=== PATIENT | male | born 1980 | race Two or more races ===

== ENCOUNTER 2020-03-19 08:17 | Outpatient (REF) | payer OTHER, SELFPAY ==
[2020-03-19 09:03] LABS: MANUAL DIFF FLAG NO
[2020-03-19 09:08] LABS: Basophils Absolute Auto 0.1 X10*3/uL (0.0-0.2); Basophils Percent Auto 1.1 % (0-2); Eosinophils Absolute Auto 0.4 X10*3/uL (0.0-0.4); Eosinophils Percent Auto 4.5 % (0-4); Hematocrit 41.6 % (42-52); Imm Gran Abs Auto 0.03 X10*3/uL (0.00-0.03); Imm Gran Pct Auto 0.3 % (0.0-0.4); Lymphocytes Percent Auto 31.6 % (20-40); Mean Corpuscular HGB Conc 33.7 g/dl (31.0-36.0); Mean Corpuscular Hemoglobin 28.2 pg (27.0-33.0); Mean Corpuscular Volume 83.7 fL (80-98); Mean Platelet Volume 9.6 fL (9.4-12.4); Monocytes Absolute Auto 0.7 X10*3/uL (0.1-1.2); Monocytes Percent Auto 7.7 % (2-11); Neutrophils Absolute Auto 5.1 X10*3/uL (2.0-8.3); Neutrophils Percent Auto 54.8 % (45-73); Platelet Count 407 X10*3/uL (160-400); Red Blood Count 4.97 X10*6/uL (4.60-5.80); Red Cell Distribution Width 13.3 % (11.0-16.0); White Blood Count 9.4 X10*3/uL (4.8-10.8)
[2020-03-19 09:40] LABS: Anion Gap 14 (12-20); Blood Urea Nitrogen 12 mg/dL (9-16); Calcium 9.4 mg/dL (8.4-10.2); Carbon Dioxide 27 mmol/L (22-29); Chloride 102 mmol/L (96-108); Cholesterol 201 mg/dL; Estimated Glomerular Filt Rate > 60; Glucose Fasting 93 mg/dL (60-99); HDL Cholesterol 33 mg/dL; LDL Cholesterol Calculated 111 mg/dl; Potassium 4.5 mmol/l (3.3-5.1); Sodium 138 mmol/L (135-145); Triglycerides 288 mg/dL
[2020-03-19 10:02] LABS: TSH reflex Free T4 1.75 mIU/mL (0.32-4.0)
[2020-03-19 11:18] LABS: SARS COV2 IgG Negative (Negative)
== END 2020-03-19 08:18 | disposition home or self-care (01) ==
LOC: HO.LAB 08:17
PROVIDERS: PCP Internal Medicine; Visit Provider Internal Medicine
DX: J45.20 Mild intermittent asthma, uncomplicated (principal); E66.01 Morbid (severe) obesity due to excess calories; Z68.37 Body mass index [BMI] 37.0-37.9, adult; I10 Essential (primary) hypertension; Z76.89 Persons encountering health services in other specified circumstances
CPT/HCPCS: 36415; 80048; 80061; 84443; 85025; 86769

== ENCOUNTER 2020-06-30 15:31 | Outpatient (REF) | payer SELFPAY ==
--- NOTE | ~2020-06-30 | XR_ITS ---
EXAMINATION: XR CHEST CLINICAL INFORMATION: R06.02 - Shortness of breath COMPARISON: Chest radiographs 06/02/2019 TECHNIQUE: 2 views of the chest were obtained. FINDINGS: The lungs are clear. The vascularity is normal. There is no airspace consolidation or effusion. The heart is normal in size. The hilar and mediastinal contours are normal. The bony structures show mild degenerative changes mid thoracic spine. XR/XR chest 2V IMPRESSION: Unremarkable examination.
[2020-06-30 16:34] LABS: Basophils Absolute Auto 0.1 X10*3/uL (0.0-0.2); Eosinophils Absolute Auto 0.3 X10*3/uL (0.0-0.4); Eosinophils Percent Auto 3.2 % (0-4); Hematocrit 39.3 % (42-52); Hemoglobin 13.3 g/dl (14.0-18.0); Imm Gran Abs Auto 0.04 X10*3/uL (0.00-0.03); Imm Gran Pct Auto 0.5 % (0.0-0.4); Lymphocytes Absolute Auto 3.2 X10*3/uL (1.2-4.9); Lymphocytes Percent Auto 37.7 % (20-40); MANUAL DIFF FLAG NO; Mean Corpuscular HGB Conc 33.8 g/dl (31.0-36.0); Mean Corpuscular Hemoglobin 28.2 pg (27.0-33.0); Mean Corpuscular Volume 83.4 fL (80-98); Mean Platelet Volume 9.6 fL (9.4-12.4); Monocytes Absolute Auto 0.6 X10*3/uL (0.1-1.2); Monocytes Percent Auto 7.3 % (2-11); Neutrophils Absolute Auto 4.2 X10*3/uL (2.0-8.3); Neutrophils Percent Auto 50.3 % (45-73); Platelet Count 414 X10*3/uL (160-400); Red Blood Count 4.71 X10*6/uL (4.60-5.80); Red Cell Distribution Width 13.3 % (11.0-16.0); White Blood Count 8.4 X10*3/uL (4.8-10.8)
[2020-06-30 16:57] LABS: Alanine Aminotransferase 36 U/L (0-40); Albumin Level 4.7 g/dL (3.5-5.0); Alkaline Phosphatase 76 U/L (39-117); Anion Gap 14 (12-20); Aspartate Amino Transferase 31 U/L (5-37); Bilirubin Direct 0.2 mg/dL (0.0-0.5); Bilirubin Total 0.7 mg/dL (0.0-1.0); Blood Urea Nitrogen 11 mg/dL (9-16); Calcium 9.6 mg/dL (8.4-10.2); Carbon Dioxide 27 mmol/L (22-29); Chloride 103 mmol/L (96-108); Estimated Glomerular Filt Rate > 60; Glucose Random 88 mg/dL (60-115); Sodium 140 mmol/L (135-145); Total Protein 7.9 g/dL (6.5-8.0)
[2020-06-30 17:23] LABS: Erythrocyte Sedimentation Rate 13 MM/HR (0-15)
[2020-06-30 17:51] LABS: B Type Natriuretic Peptide 10 pg/mL (<100)
== END 2020-06-30 15:32 | disposition home or self-care (01) ==
LOC: HO.LAB 15:31
PROVIDERS: PCP Internal Medicine; Visit Provider Nurse Practitioner Family
DX: R06.02 Shortness of breath (principal); M79.89 Other specified soft tissue disorders; R21 Rash and other nonspecific skin eruption; R23.8 Other skin changes
CPT/HCPCS: 36415; 71046; 80048; 80076; 83880; 85025; 85652

== ENCOUNTER 2020-12-27 09:52 | Outpatient (REF) | payer OTHER, SELFPAY ==
--- NOTE | ~2020-12-27 | XR_ITS ---
EXAMINATION: XR FOOT, LEFT CLINICAL INFORMATION: Left foot pain, lateral. COMPARISON: None. TECHNIQUE: AP, lateral, and oblique views of the left foot. FINDINGS: The bones and soft tissues are normal. No fracture. Alignment is anatomic. Joint spaces are maintained. Tiny plantar calcaneal spur is present. XR/XR foot LT 2V IMPRESSION: Unremarkable left foot.
[2020-12-27 10:27] LABS: MANUAL DIFF FLAG NO
[2020-12-27 10:33] LABS: Basophils Absolute Auto 0.1 X10*3/uL (0.0-0.2); Basophils Percent Auto 1.2 % (0-2); Eosinophils Absolute Auto 0.3 X10*3/uL (0.0-0.4); Eosinophils Percent Auto 4.1 % (0-4); Hematocrit 41.7 % (42-52); Hemoglobin 14.1 g/dl (14.0-18.0); Imm Gran Abs Auto 0.04 X10*3/uL (0.00-0.03); Imm Gran Pct Auto 0.5 % (0.0-0.4); Lymphocytes Absolute Auto 2.5 X10*3/uL (1.2-4.9); Lymphocytes Percent Auto 29.5 % (20-40); Mean Corpuscular HGB Conc 33.8 g/dl (31.0-36.0); Mean Corpuscular Volume 82.9 fL (80-98); Mean Platelet Volume 9.4 fL (9.4-12.4); Monocytes Absolute Auto 0.7 X10*3/uL (0.1-1.2); Monocytes Percent Auto 8.7 % (2-11); Neutrophils Absolute Auto 4.7 X10*3/uL (2.0-8.3); Platelet Count 440 X10*3/uL (160-400); Red Blood Count 5.03 X10*6/uL (4.60-5.80); Red Cell Distribution Width 13.8 % (11.0-16.0); White Blood Count 8.3 X10*3/uL (4.8-10.8)
[2020-12-27 10:57] LABS: Alanine Aminotransferase 29 U/L (0-40); Albumin Level 4.5 g/dL (3.5-5.0); Alkaline Phosphatase 86 U/L (39-117); Anion Gap 13 (12-20); Aspartate Amino Transferase 20 U/L (5-37); Bilirubin Total 0.2 mg/dL (0.0-1.0); Blood Urea Nitrogen 12 mg/dL (9-16); Calcium 10.2 mg/dL (8.4-10.2); Carbon Dioxide 27 mmol/L (22-29); Chloride 104 mmol/L (96-108); Cholesterol 181 mg/dL; Estimated Glomerular Filt Rate > 60; Glucose Fasting 104 mg/dL (60-99); HDL Cholesterol 37 mg/dL; LDL Cholesterol Calculated 70 mg/dl; Potassium 4.8 mmol/L (3.3-5.1); Sodium 139 mmol/L (135-145); Total Protein 7.4 g/dL (6.5-8.0); Triglycerides 372 mg/dL
[2020-12-27 11:19] LABS: TSH reflex Free T4 1.65 uIU/mL (0.32-4.0)
== END 2020-12-27 09:53 | disposition home or self-care (01) ==
LOC: HO.LAB 09:52
PROVIDERS: PCP Internal Medicine; Visit Provider Internal Medicine
DX: J45.20 Mild intermittent asthma, uncomplicated (principal); J45.40 Moderate persistent asthma, uncomplicated; M79.672 Pain in left foot; G89.29 Other chronic pain; E66.09 Other obesity due to excess calories; I10 Essential (primary) hypertension
CPT/HCPCS: 36415; 73620; 80053; 80061; 84443; 85025

== ENCOUNTER 2021-11-16 13:14 | Outpatient (REF) | payer OTHER, SELFPAY ==
[2021-11-16 14:56] LABS: MANUAL DIFF FLAG NO
[2021-11-16 15:05] LABS: Basophils Absolute Auto 0.1 X10*3/uL (0.0-0.2); Basophils Percent Auto 1.2 % (0-2); Eosinophils Absolute Auto 0.3 X10*3/uL (0.0-0.4); Eosinophils Percent Auto 4.2 % (0-4); Hematocrit 40.5 % (42.0-52.0); Hemoglobin 13.8 g/dl (14.0-18.0); Imm Gran Abs Auto 0.03 X10*3/uL (0.00-0.03); Imm Gran Pct Auto 0.4 % (0.0-0.4); Lymphocytes Absolute Auto 2.6 X10*3/uL (1.2-4.9); Lymphocytes Percent Auto 35.3 % (20-40); Mean Corpuscular HGB Conc 34.1 g/dl (31.0-36.0); Mean Corpuscular Hemoglobin 28.2 pg (27.0-33.0); Mean Corpuscular Volume 82.8 fL (80.0-98.0); Mean Platelet Volume 9.9 fL (9.4-12.4); Monocytes Absolute Auto 0.5 X10*3/uL (0.1-1.2); Neutrophils Absolute Auto 3.8 x10*3/uL (2.0-8.3); Neutrophils Percent Auto 51.9 % (45-73); Platelet Count 417 X10*3/uL (160-400); Red Blood Count 4.89 X10*6/uL (4.60-5.80); Red Cell Distribution Width 13.5 % (11.0-16.0); White Blood Count 7.3 X10*3/uL (4.8-10.8)
[2021-11-16 15:29] LABS: Alanine Aminotransferase 25 U/L (0-40); Albumin Level 4.6 g/dL (3.5-5.0); Alkaline Phosphatase 77 U/L (39-117); Anion Gap 15 (12-20); Aspartate Amino Transferase 23 U/L (5-37); Bilirubin Total 0.6 mg/dL (0.0-1.0); Blood Urea Nitrogen 14 mg/dL (9-16); Calcium 9.9 mg/dL (8.4-10.2); Carbon Dioxide 27 mmol/L (22-29); Chloride 103 mmol/L (96-108); Cholesterol 209 mg/dL; Estimated Glomerular Filt Rate > 60; Glucose Fasting 102 mg/dL (60-99); HDL Cholesterol 37 mg/dL; LDL Cholesterol Calculated 128 mg/dl; Potassium 4.6 mmol/L (3.3-5.1); Sodium 140 mmol/L (135-145); Total Protein 7.6 g/dL (6.5-8.0); Triglycerides 221 mg/dL
[2021-11-16 15:37] LABS: TSH reflex Free T4 1.29 uIU/mL (0.32-4.0)
== END 2021-11-16 13:15 | disposition home or self-care (01) ==
LOC: HO.HMGCLDS 13:14
PROVIDERS: PCP Internal Medicine; Visit Provider Internal Medicine
DX: Z00.01 Encounter for general adult medical examination with abnormal findings (principal); I10 Essential (primary) hypertension; J45.20 Mild intermittent asthma, uncomplicated; R20.2 Paresthesia of skin; E66.09 Other obesity due to excess calories
CPT/HCPCS: 36415; 80053; 80061; 84443; 85025

== ENCOUNTER 2022-06-16 11:57 | Outpatient (REF) | payer OTHER, SELFPAY ==
[2022-06-16 14:31] LABS: Estimated Average Glucose 114 mg/dL; Hemoglobin A1c % 5.6 %
[2022-06-16 14:43] LABS: Alanine Aminotransferase 33 U/L (0-40); Albumin Level 4.5 g/dL (3.5-5.0); Alkaline Phosphatase 77 U/L (39-117); Anion Gap 12 (12-20); Aspartate Amino Transferase 25 U/L (5-37); Bilirubin Total 0.4 mg/dL (0.0-1.0); Blood Urea Nitrogen 13 mg/dL (9-16); Calcium 9.8 mg/dL (8.4-10.2); Carbon Dioxide 29 mmol/L (22-29); Chloride 104 mmol/L (96-108); Estimated Glomerular Filt Rate > 60; Glucose Random 99 mg/dL (60-115); Sodium 140 mmol/L (135-145); Total Protein 7.5 g/dL (6.5-8.0)
== END 2022-06-16 11:58 | disposition home or self-care (01) ==
LOC: HO.HMGCLDS 11:57
PROVIDERS: PCP Internal Medicine; Visit Provider Internal Medicine
DX: J45.40 Moderate persistent asthma, uncomplicated (principal); R73.01 Impaired fasting glucose; I10 Essential (primary) hypertension
CPT/HCPCS: 36415; 80053; 83036

== ENCOUNTER 2022-10-08 14:26 | Outpatient (REF) | payer OTHER, SELFPAY | END 2022-10-08 14:27 | disposition home or self-care (01) | LOC: HO.HMGCX 14:26 | PROVIDERS: PCP Internal Medicine; Visit Provider Internal Medicine | DX: M25.512 Pain in left shoulder (principal); R20.0 Anesthesia of skin | CPT/HCPCS: 73030 ==

== ENCOUNTER 2022-11-19 14:29 | Outpatient (AMB) | payer OTHER, SELFPAY ==
[2022-11-19 14:31] VITALS: BP 118/78; PULSE 78; O2SAT 98; BMI 36.0
--- NOTE | 2022-11-19 14:31 | A.OFFPC_ITS ---
Vital Signs 11/19/22 14:31 Height 5 ft 6 in Weight 223 lb 2 oz BMI 36.0 BP 118/78 Blood Pressure Location Rt brachial Position Sitting Pulse 78 Pulse Source Pulse Oximeter Pulse Oximetry (%) 98 Oxygen Delivery Method Room Air Intake Visit Reasons: physical Allergies hydrochlorothiazide Allergy (Mild, Verified 11/19/22 14:37) Rash Medication List - Last Reconciled 11/19/22 by Duran Garcia MD albuterol sulfate 90 mcg/actuation (ProAir HFA) 1 inh inhalation QID PRN 30 days atenolol 25 mg PO DAILY 90 days cetirizine 10 mg PO DAILY PRN fluticasone propionate 50 mcg/actuation (Flonase Allergy Relief) 1 spray intranasal BID 30 days Symbicort 160-4.5 mcg/actuation (budesonide-formoterol) 2 puffs inhalation BID 30 days NS Tobacco use date assessed: 11/19/22 Dental Screening Dental Screen Date: 11/19/22 Did you have a dental visit in the last 12 months?: Yes Did you have a dental problem in the last 6 months where you did not have access to dental care?: No Was dental information given to patient?: No HPI physical HPI Details Patient is a 42-year-old gentleman came in today for a sick visit. Patient started feeling sick on maintenance stay with sore throat headache low- grade fever which got worse the next day. And then the cough started spitting out green phlegm. Complaining of pressure in his forehead. No nausea vomiting diarrhea no abdominal pain. On examination his right ear is inflamed. COVID test taken. Azithromycin sent patient is to push fluids and rest. [facility] Medical History Atypical chest pain ETOH abuse Other dental procedure status Tobacco abuse Surgical History Hx of appendectomy Family History Mother Asthma HTN (hypertension) Heavy drinker Father High cholesterol HTN (hypertension) Other Substance use disorder Social History Housing: Apartment Alcohol intake: current Alcohol intake frequency: a few times a month Patient Tobacco Use Status: Former Tobacco user e-Cigarette/Vaping Use: Never Used Current occupational status: employed Cognitive needs: No Hearing needs: No Vision needs: No Questionnaire Thrive Questionnaire Date Thrive assessed: 11/11/21 AUDIT C Alcohol Use Questionnaire (AUDIT-C) 1. How often do you have a drink containing alcohol?: 2-4 times a month 2. How many drinks containing alcohol do you have on a typical day when you are drinking?: 1 or 2 3. How often do you have six or more drinks on one occasion?: Never Total Score: 2 Score Reviewed/Action Taken: Yes JOHANNA-7 AMB Questionnaire JOHANNA-7 Date JOHANNA - 7 assessed: 11/11/21 Source: Developed by Drs. Noe Cortes, Jing Valdovinos, Stanislaw Cruz and colleagues, with an educational fernandez from [employer]. Review of Systems Const All systems reviewed & are unremarkable except as noted in HPI and below Physical exam (Primary Care) Vital Signs: Last Vital Signs Pulse 78 11/19/22 14:31 BP 118/78 11/19/22 14:31 Pulse Ox 98 11/19/22 14:31 Oxygen Delivery Method Room Air 11/19/22 14:31 BMI result Body Mass Index 36.0 Tobacco/Smoking Status: Tobacco use Status Tobacco use date assessed 11/19/22 11/19/22 14:38 Patient Tobacco Use Status Former Tobacco user 11/19/22 14:32 e-Cigarette/Vaping Use Never Used 11/19/22 14:32 Thrive Assessment: Date of Thrive Assessment Date Thrive assessed 11/11/21 11/19/22 14:32 Const General: no acute distress HENMT Other: Right ear tympanic membrane dull and erythematous Ears: mastoids normal General nose exam: Normal external nose present Throat: Yes posterior oropharynx abnormal Neck Neck: Yes no lymphadenopathy Resp Effort & Inspection: normal respiratory effort Auscultation: clear to auscultation bilaterally Psych Mental Status: mental status grossly normal Assessment and Plan Assessment & Plan (1) Right otitis media: Code(s): H66.91 - Otitis media, unspecified, right ear (2) Acute sinusitis: Code(s): J01.90 - Acute sinusitis, unspecified Qualifiers: Sinusitis location: unspecified location Recurrence: not specified as recurrent Qualified Code(s): J01.90 - Acute sinusitis, unspecified Plan Patient is a 42-year-old gentleman came in today for a sick visit. Patient started feeling sick on maintenance stay with sore throat headache low- grade fever which got worse the next day. And then the cough started spitting out green phlegm. Complaining of pressure in his forehead. No nausea vomiting diarrhea no abdominal pain. On examination his right ear is inflamed. COVID test taken. Azithromycin sent patient is to push fluids and rest. Orders: Orders SARS-CoV2/FLU/RSV Today R09.89 - Other specified symptoms and signs involving the circulatory and respiratory systems Medications: New azithromycin Take 2 tablets today then 1 daily 250 mg PO ONCE 5 days 6 tabs 0RF J06.9 - Acute upper respiratory infection, unspecified Coding Level of Care Code Est Pt Level 3 (00308) Diagnoses Right otitis media H66.91 Acute sinusitis J01.90 Sinusitis location: unspecified location Recurrence: not specified as recurrent
== END 2022-11-19 15:43 | disposition home or self-care (01) ==
PROVIDERS: Visit Provider Internal Medicine
DX: H66.91 Otitis media, unspecified, right ear (principal); J01.90 Acute sinusitis, unspecified
CPT/HCPCS: 99213

== ENCOUNTER 2022-11-19 16:50 | Outpatient (REF) | payer OTHER, SELFPAY ==
[2022-11-20 03:57] LABS: Influenza A PCR NEGATIVE (Negative); Influenza B PCR NEGATIVE (Negative); Resp Syncy Virus RNA Qual PCR NEGATIVE (Negative); SARS COV2 PCR INHOUSE NEGATIVE (Negative)
== END 2022-11-19 16:51 | disposition home or self-care (01) ==
LOC: HO.LNP 16:50
PROVIDERS: Visit Provider Internal Medicine
DX: R09.89 Other specified symptoms and signs involving the circulatory and respiratory systems (principal); Z20.822 Contact with and (suspected) exposure to COVID-19
CPT/HCPCS: 0241U

== ENCOUNTER 2022-11-25 10:29 | Outpatient (REF) | payer OTHER, SELFPAY ==
--- NOTE | 2022-11-25 10:32 | EMG_ITS ---
Right median and ulnar motor and sensory studies were performed. Right radial sensory studies were performed and paraspinal muscles were tested with a needle. IMPRESSION: [id number] right median neuropathy across carpal tunnel. MD ELBERT Pimentel/ANNA / [phone]
== END 2022-11-25 10:30 | disposition home or self-care (01) ==
LOC: HO.NEURO 10:29
PROVIDERS: PCP Internal Medicine; Visit Provider Internal Medicine
DX: R20.0 Anesthesia of skin (principal)
CPT/HCPCS: 95860; 95886; 95907; 95909

== ENCOUNTER 2022-12-24 11:56 | Outpatient (AMB) | payer OTHER, SELFPAY ==
--- NOTE | 2022-12-24 12:00 | A.OFFPC_ITS ---
Vital Signs 12/24/22 12:01 Height 5 ft 6 in Weight 228 lb BMI 36.8 BP 140/92 H Blood Pressure Location Lt brachial Position Sitting Pulse 71 Pulse Source Pulse Oximeter Pulse Oximetry (%) 97 Oxygen Delivery Method Room Air Intake Visit Reasons: one month fu Allergies hydrochlorothiazide Allergy (Mild, Verified 12/24/22 12:01) Rash Medication List - Last Reconciled 12/24/22 by Duran Garcia MD albuterol sulfate 90 mcg/actuation (ProAir HFA) 1 inh inhalation QID PRN 30 days atenolol 25 mg PO DAILY 90 days cetirizine 10 mg PO DAILY PRN fluticasone propionate 50 mcg/actuation (Flonase Allergy Relief) 1 spray intranasal BID 30 days Symbicort 160-4.5 mcg/actuation (budesonide-formoterol) 2 puffs inhalation BID 30 days NS Tobacco use date assessed: 12/24/22 Dental Screening Dental Screen Date: 12/24/22 Did you have a dental visit in the last 12 months?: Yes Did you have a dental problem in the last 6 months where you did not have access to dental care?: No Was dental information given to patient?: Patient has dentist HPI one month fu HPI Details Blood pressure is 140/92 patient is taking atenolol 25 mg regularly no side effects Allergies are stable with Zyrtec and Flonase Asthma is stable with Symbicort Patient is having it will bowel syndrome diarrhea predominant for the past few weeks have semi-solid stool I have instructed him to start taking probiotic and if needed Imodium as needed. There is no blood in the stools there is no pain in the abdomen but does feel bloated. He also have a severe acid reflux and is taking [id number] PPI only as needed. I have sent pantoprazole 40 mg daily patient is to start taking that. I will also booking appointment with the dietitian to talk about healthy diet. His BMI is 36.8 need to lose weight. We will keep an eye on his blood pressure his blood pressure was fine last visit in November. He EMG nerve conduction study shows carpal tunnel syndrome ordered right wrist, he is wearing wrist splint which is helping We discussed the complications of carpal tunnel note treated and if his symptoms get severe he will get back to me We talked about the cortisone injection and surgery options. Follow-up 3 months [facility] Medical History Atypical chest pain Tobacco abuse ETOH abuse Other dental procedure status Surgical History Hx of appendectomy Family History Mother Asthma HTN (hypertension) Heavy drinker Father High cholesterol HTN (hypertension) Other Substance use disorder Social History Housing: Apartment Alcohol intake: current Alcohol intake frequency: a few times a month Patient Tobacco Use Status: Former Tobacco user e-Cigarette/Vaping Use: Never Used Current occupational status: employed Cognitive needs: No Hearing needs: No Vision needs: No Questionnaire PHQ-9 Over the last 2 weeks, how often have you been bothered by any of the following problems? 1. Little interest or pleasure in doing things: several days 2. Feeling down, depressed, or hopeless: several days 3. Trouble falling or staying asleep, or sleeping too much: several days 4. Feeling tired or having little energy: several days 5. Poor appetite or overeating: several days 6. Feeling bad about yourself - or that you are a failure or have let yourself or your family down: several days 7. Trouble concentrating on things, such as reading the newspaper or watching television: several days 8. Moving or speaking so slowly that other people could have noticed. Or the opposite - being so fidgety or restless that you have been moving around a lot more than usual: not at all 9. Thoughts that you would be better off or of hurting yourself in some way: not at all Total score: 7 Depression Screening Interpretation: Negative 61227 - PHQ-9 Billing: Yes Source: Developed by Drs. Noe Cortes, Jing Valdovinos, Stanislaw ramirez nd colleagues, with an educational fernandez from [employer]. Thrive Questionnaire Date Thrive assessed: 12/24/22 I am a: Patient What is your living situation today?: I have a steady place to live Within the past 12 months, did the food you bought not last and you didn't have the money to get more?: Sometimes True Within the past 12 months, did you worry whether your food would run out before you got money to buy more?: Sometimes True Do you have trouble paying for medicines?: Yes Do you have trouble getting transportation to medical appointments?: No Do you have trouble paying your heating and electricity bill?: No Do you have trouble taking care of your child, family member or friend?: No Do you have trouble with day-to-day activities such as bathing, preparing meals, shopping, managing finances, etc.?: No Are you currently unemployed and looking for a job?: No Are you interested in more education?: No Currently or been in a relationship where the following occur: I choose not to answer this question AUDIT C Alcohol Use Questionnaire (AUDIT-C) 1. How often do you have a drink containing alcohol?: Monthly or less 2. How many drinks containing alcohol do you have on a typical day when you are drinking?: 1 or 2 3. How often do you have six or more drinks on one occasion?: Never Total Score: 1 Score Reviewed/Action Taken: Yes JOHANNA-7 AMB Questionnaire JOHANNA-7 Date JOHANNA - 7 assessed: 12/24/22 Feeling nervous, anxious, or on edge: 1 = Several days Not being able to stop or control worryin = Several days Worrying too much about different things: 3 = Nearly every day Trouble relaxin = More than half the days Being so restless that it is hard to sit still: 1 = Several days Becoming easily annoyed or irritable: 1 = Several days Feeling afraid as if something awful might happen: 1 = Several days Total JOHANNA-7 score (0-4 normal; 5-9 mild; 10-14 moderate; 15-21 severe): 10 Source: Developed by Drs. Noe Cortes, Jing Valdovinos, Stanislaw Cruz and colleagues, with an educational fernandez from [employer]. JOHANNA-7 Assessment Billing JOHANNA-7 Assessment Tool: JOHANNA-7 Assessment [id number] Review of Systems Const Denies chills and Denies fever(s) ENT Denies epistaxis and Denies nasal discharge Card Denies chest pain Resp Denies chest congestion, Denies cough and Denies hemoptysis GI Denies nausea Skin/Breast Denies rash Neuro Reports no additional complaints Psych Reports no additional complaints Endo Reports no additional complaints Physical exam (Primary Care) Vital Signs: Last Vital Signs Pulse 71 12/24/22 12:01 BP 140/92 H 12/24/22 12:01 Pulse Ox 97 12/24/22 12:01 Oxygen Delivery Method Room Air 12/24/22 12:01 BMI result Body Mass Index 36.8 Tobacco/Smoking Status: Tobacco use Status Tobacco use date assessed 12/24/22 12/24/22 12:03 Patient Tobacco Use Status Former Tobacco user 12/24/22 12:03 e-Cigarette/Vaping Use Never Used 12/24/22 12:03 PHQ-9: PHQ-9 Score PHQ-9: Total score 7 12/24/22 12:25 Depression Screening Interpretation: Negative Thrive Assessment: Date of Thrive Assessment Date Thrive assessed 12/24/22 12/24/22 12:25 Currently or been in a relationship where the following occur: I choose not to answer this question Const General: cooperative, comfortable and no acute distress Orientation/consciousness: patient oriented x3 HENMT Head: Yes normocephalic Eyes General: appearance normal, both eyes and all related structures Neck Neck: Yes supple Resp Effort & Inspection: normal respiratory effort, no cough and no stridor Cardio Rhythm: regular rhythm Heart sounds: S1 normal heart sound present and S2 normal heart sound present GI Other: Abdomen is soft nontender bowel sound positive Skin General skin exam: turgor normal Neuro General: patient oriented x3, tone normal and moves all extremities Extrem Right lower extremity: no edema Left lower extremity: no edema Assessment and Plan Assessment & Plan (1) Hypertension, essential: Code(s): I10 - Essential (primary) hypertension (2) Asthma, moderate persistent: Code(s): J45.40 - Moderate persistent asthma, uncomplicated Qualifiers: Asthma complication type: uncomplicated Qualified Code(s): J45.40 - M oderate persistent asthma, uncomplicated (3) Impaired fasting blood sugar: Code(s): R73.01 - Impaired fasting glucose (4) Carpal tunnel syndrome, right: Code(s): G56.01 - Carpal tunnel syndrome, right upper limb (5) IBS (irritable bowel syndrome): Code(s): K58.9 - Irritable bowel syndrome without diarrhea Qualifiers: Irritable bowel syndrome type: with diarrhea Qualified Code(s): K58.0 - Irritable bowel syndrome with diarrhea (6) Obesity: Code(s): E66.9 - Obesity, unspecified Qualifiers: Body mass index: BMI 37.0-37.9 Obesity classification: adult class 2 (BMI 35 - 39.9) Obesity type: due to excess calories Serious obesity comorbidity presence: with serious comorbidity Qualified Code(s): E66.01 - Morbid (severe) obesity due to excess calories; Z68.37 - Body mass index [BMI] 37.0-37.9, adult (7) Right shoulder pain: Code(s): M25.511 - Pain in right shoulder Qualifiers: Chronicity: chronic Qualified Code(s): M25.511 - Pain in right shoulder; G89.29 - Other chronic pain (8) Acid reflux: Code(s): K21.9 - Gastro-esophageal reflux disease without esophagitis Qualifiers: Esophagitis presence: without esophagitis Qualified Code(s): K21.9 - Gastro-esophageal reflux disease without esophagitis Plan Blood pressure is 140/92 patient is taking atenolol 25 mg regularly no side effects Allergies are stable with Zyrtec and Flonase Asthma is stable with Symbicort Patient is having it will bowel syndrome diarrhea predominant for the past few weeks have semi-solid stool I have instructed him to start taking probiotic and if needed Imodium as needed. There is no blood in the stools there is no pain in the abdomen but does feel bloated. He also have a severe acid reflux and is taking [id number] PPI only as needed. I have sent pantoprazole 40 mg daily patient is to start taking that. I will also booking appointment with the dietitian to talk about healthy diet. His BMI is 36.8 need to lose weight. We will keep an eye on his blood pressure his blood pressure was fine last visit in November. He EMG nerve conduction study shows carpal tunnel syndrome ordered right wrist, he is wearing wrist splint which is helping We discussed the complications of carpal tunnel note treated and if his symptoms get severe he will get back to me We talked about the cortisone injection and surgery options. His right shoulder pain is feeling better he is going through physical therapy Follow-up 3 months Medications: New pantoprazole 40 mg PO DAILY 90 tabs 0RF Coding Level of Care Code Est Pt Level 4 (31122) Diagnoses Hypertension, essential I10 Moderate persistent asthma without complication J45.40 Asthma complication type: uncomplicated Impaired fasting blood sugar R73.01 Carpal tunnel syndrome, right G56.01 Irritable bowel syndrome with diarrhea K58.0 Irritable bowel syndrome type: with diarrhea Class 2 severe obesity due to excess calories with serious comorbidity and body mass index (BMI) of 37.0 to 37.9 in adult E66.01; Z68.37 Body mass index: BMI 37.0-37.9 Obesity classification: adult class 2 (BMI 35 - 39.9) Obesity type: due to excess calories Serious obesity comorbidity presence: with serious comorbidity Chronic right shoulder pain M25.511; G89.29 Chronicity: chronic Gastroesophageal reflux disease without esophagitis K21.9 Esophagitis presence: without esophagitis Additional Codes JOHANNA-7 Assessment Billing - JOHANNA-7 Assessment Tool: JOHANNA-7 Assessment [id number] ([id number])
[2022-12-24 12:01] VITALS: BP 140/92; PULSE 71; O2SAT 97; BMI 36.8
== END 2022-12-24 12:21 | disposition home or self-care (01) ==
PROVIDERS: PCP Internal Medicine; Visit Provider Internal Medicine
DX: I10 Essential (primary) hypertension (principal); J45.40 Moderate persistent asthma, uncomplicated; E66.01 Morbid (severe) obesity due to excess calories; Z68.37 Body mass index [BMI] 37.0-37.9, adult; K58.0 Irritable bowel syndrome with diarrhea; R73.01 Impaired fasting glucose; G56.01 Carpal tunnel syndrome, right upper limb; M25.511 Pain in right shoulder; G89.29 Other chronic pain; K21.9 Gastro-esophageal reflux disease without esophagitis
CPT/HCPCS: 99214

== ENCOUNTER 2022-12-31 14:00 | Outpatient (RCR) | payer OTHER, SELFPAY ==
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
--- NOTE | 2023-01-05 13:42 | MHC.PT.DC ---
[facility] [place] Office [place] Office [place] Office [address] [place] Parmar [address] [phone] F: [phone] F: [phone] F: [phone] F: [phone] Physical Therapy Discharge Report Diagnosis: This is a 42 yo male presenting to skilled PT with a script for pain in L shoulder. Date of Surgery: Date of Evaluation: 11/24/22 Date of Discharge: 01/05/23 Treatments to Date: 5 Cancellations to Date: 0 No Shows to Date: 0 Discharge Status: Achieved Goals Improved Function Independent with HEP Patient Elected to Stop Discharge Summary: Patient reporting continuous crepitis that is nonpainful at the last session. I continued education again on the fact that our joints make noises and if this is not painful than he should not worry. I did educate him that he should discuss his multiple joint aches and pains with his PCP if he is concerned. He has not started at the gym but talks about starting this soon. He has a sufficient HEP and is I in his program. Patient requesting DC after 5 visits. WNL ROM and strength noted in BUE. Electronically signed by: Asya Greer PT Please sign and return to therapist. Thank you for your referral.
== END 2023-01-05 13:42 | disposition home or self-care (01) ==
LOC: HO.PTCHIC 14:00
PROVIDERS: PCP Internal Medicine; Visit Provider Internal Medicine
DX: M25.511 Pain in right shoulder (principal); M25.512 Pain in left shoulder
CPT/HCPCS: 97110; 97140; 97162

== ENCOUNTER 2023-09-21 06:59 | Outpatient (AMB) | payer OTHER, SELFPAY ==
--- NOTE | 2023-09-21 08:30 | MHC.PC.OV ---
Vital Signs 09/21/23 08:49 Height 5 ft 6 in Weight 225 lb BMI 36.3 Intake Visit Reasons: 9 Month follow up Allergies hydrochlorothiazide Allergy (Mild, Verified 04/21/23 09:06) Rash Medication List - Last Reconciled 09/21/23 by Duran Garcia MD albuterol sulfate 90 mcg/actuation (ProAir HFA) 1 inh inhalation QID PRN 30 days atenolol 25 mg PO DAILY 90 days cetirizine 10 mg PO DAILY PRN fluticasone propionate 50 mcg/actuation (Flonase Allergy Relief) 1 spray intranasal BID 30 days pantoprazole 40 mg PO DAILY Symbicort 160-4.5 mcg/actuation (budesonide-formoterol) 2 puffs inhalation BID 30 days NS Tobacco use date assessed: 09/21/23 Dental Screening Dental Screen Date: 09/21/23 Did you have a dental visit in the last 12 months?: No Did you have a dental problem in the last 6 months where you did not have access to dental care?: No Was dental information given to patient?: Patient has dentist HPI 9 Month follow up HPI Details Patient is 43 year old gentleman this is a video conference follow up. Hypertension: patient says that his blood pressure is stable. He is taking his Atenolol regularly. Once in a while he does monitor his blood pressure if he is around Pharmacy with the blood pressure monitor. Patient does have his own monitor he will check the blood pressure and let me know right now. Asthma is stable, patient need to refill on his inhalers, which I have sent Acid reflux is stable as well labs were done June of this year. Reviewed with the patient. We will order a new set of lab to be done before next visit in 4 months. [facility] Medical History Atypical chest pain Tobacco abuse ETOH abuse Other dental procedure status Surgical History Hx of appendectomy Family History Mother Asthma HTN (hypertension) Heavy drinker Father High cholesterol HTN (hypertension) Other Substance use disorder Social History Housing: Apartment Alcohol intake: current Alcohol intake frequency: a few times a month Patient Tobacco Use Status: Former Tobacco user e-Cigarette/Vaping Use: Never Used Current occupational status: employed Cognitive needs: No Hearing needs: No Vision needs: No Questionnaire Thrive Questionnaire Date Thrive assessed: 12/24/22 JOHANNA-7 AMB Questionnaire JOHANNA-7 Date JOHANNA - 7 assessed: 12/24/22 Source: Developed by Drs. Noe Cortes, Jing Valdovinos, Stanislaw Cruz and colleagues, with an educational fernandez from [employer]. Review of Systems Const Denies chills and Denies fever(s) ENT Denies epistaxis and Denies nasal discharge Card Denies chest pain Resp Denies chest congestion, Denies cough and Denies hemoptysis GI Denies diarrhea and Denies nausea Skin/Breast Denies rash Neuro Reports no additional complaints Psych Reports no additional complaints Endo Reports no additional complaints Physical exam (Primary Care) BMI result Body Mass Index 36.3 Tobacco/Smoking Status: Tobacco use Status Tobacco use date assessed 09/21/23 09/21/23 08:32 Patient Tobacco Use Status Former Tobacco user 09/21/23 08:32 e-Cigarette/Vaping Use Never Used 09/21/23 08:32 Thrive Assessment: Date of Thrive Assessment Date Thrive assessed 12/24/22 09/21/23 08:32 Telehealth Telehealth Telehealth Platform: [facility] Location of provider rendering services: practice address Location of patient: address on file Patient Identification confirmed using: Name, : Yes Telehealth method: video (attempted) Patient verbally consented to treatment: Yes Patient verbally consented to billing insurance company: Yes Patient informed of any privacy concerns related to visit: Yes Minutes spent on Phone/Video with Pt.: 16 Assessment and Plan Assessment & Plan (1) Hypertension, essential: Code(s): I10 - Essential (primary) hypertension (2) Obesity due to excess calories: Code(s): E66.09 - Other obesity due to excess calories Qualifiers: Body mass index: BMI 36.0-36.9 Obesity classification: adult class 2 (BMI 35 - 39.9) Serious obesity comorbidity presence: with serious comorbidity Qualified Code(s): E66.01 - Morbid (severe) obesity due to excess calories; Z68.36 - Body mass index [BMI] 36.0-36.9, adult (3) Asthma, moderate persistent: Code(s): J45.40 - Moderate persistent asthma, uncomplicated Qualifiers: Asthma complication type: uncomplicated Qualified Code(s): J45.40 - Moderate persistent asthma, uncomplicated (4) Impaired fasting blood sugar: Code(s): R73.01 - Impaired fasting glucose (5) Acid reflux: Code(s): K21.9 - Gastro-esophageal reflux disease without esophagitis Qualifiers: Esophagitis presence: without esophagitis Qualified Code(s): K21.9 - Gastro-esophageal reflux disease without esophagitis Plan Patient is 43 year old gentleman this is a video conference follow up. Hypertension: patient says that his blood pressure is stable. He is taking his Atenolol regularly. Once in a while he does monitor his blood pressure if he is around Pharmacy with the blood pressure monitor. Patient does have his own monitor he will check the blood pressure and let me know right now. Asthma is stable, patient need to refill on his inhalers, which I have sent Acid reflux is stable as well labs were done June of this year. Reviewed with the patient. We will order a new set of lab to be done before next visit in 4 months. total time spent 30 min, including going over patients concerns , medications ordering labs, sending meds and charting Orders: Orders Comprehensive Met. Panel Today E66.09 - Other obesity due to excess calories, I10 - Essential (primary) hypertension, J45.40 - Moderate persistent asthma, uncomplicated, K21.9 - Gastro-esophageal reflux disease without esophagitis, R73.01 - Impaired fasting glucose LDL Cholesterol Direct Today E66.09 - Other obesity due to excess calories, I10 - Essential (primary) hypertension, J45.40 - Moderate persistent asthma, uncomplicated, K21.9 - Gastro-esophageal reflux disease without esophagitis, R73.01 - Impaired fasting glucose Complete Blood Count Auto Diff Today E66.09 - Other obesity due to excess calories, I10 - Essential (primary) hypertension, J45.40 - Moderate persistent asthma, uncomplicated, K21.9 - Gastro-esophageal reflux disease without esophagitis, R73.01 - Impaired fasting glucose Medications: Refilled Symbicort 160-4.5 mcg/actuation (budesonide-formoterol) 2 puffs inhalation BID 10.2 grams 3RF 30 days NS J45.909 - Unspecified asthma, uncomplicated pantoprazole 40 mg PO DAILY 90 tabs 0RF Coding Level of Care Code Est Pt Level 4 (52512) Diagnoses Hypertension, essential I10 Class 2 severe obesity due to excess calories with serious comorbidity and body mass index (BMI) of 36.0 to 36.9 in adult E66.01; Z68.36 Body mass index: BMI 36.0-36.9 Obesity classification: adult class 2 (BMI 35 - 39.9) Serious obesity comorbidity presence: with serious comorbidity Moderate persistent asthma without complication J45.40 Asthma complication type: uncomplicated Impaired fasting blood sugar R73.01 Gastroesophageal reflux disease without esophagitis K21.9 Esophagitis presence: without esophagitis
[2023-09-21 08:49] VITALS: BMI 36.3
== END 2023-09-21 12:13 | disposition home or self-care (01) ==
LOC: HO.HMGC 06:59
PROVIDERS: PCP Internal Medicine; Visit Provider Internal Medicine
DX: I10 Essential (primary) hypertension (principal); E66.01 Morbid (severe) obesity due to excess calories; Z68.36 Body mass index [BMI] 36.0-36.9, adult; J45.40 Moderate persistent asthma, uncomplicated; R73.01 Impaired fasting glucose; K21.9 Gastro-esophageal reflux disease without esophagitis
CPT/HCPCS: 99214

== ENCOUNTER 2024-01-13 12:14 | Outpatient (AMB) | payer OTHER, SELFPAY ==
[2024-01-13 12:22] VITALS: BP 168/118; PULSE 83; O2SAT 98; BMI 36.2
--- NOTE | 2024-01-13 12:22 | MHC.PC.OV ---
Vital Signs 01/13/24 12:22 Height 5 ft 6 in Weight 224 lb 8 oz BMI 36.2 BP 168/118 H Blood Pressure Location Lt brachial Position Sitting Pulse 83 Pulse Source Pulse Oximeter Pulse Oximetry (%) 98 Oxygen Delivery Method Room Air Intake Visit Reasons: Follow up Allergies hydrochlorothiazide Allergy (Mild, Verified 01/13/24 12:23) Rash Medication List - Last Reconciled 01/13/24 by Duran Garcia MD albuterol sulfate 90 mcg/actuation (ProAir HFA) 1 inh inhalation QID PRN 30 days atenolol 25 mg PO DAILY 90 days cetirizine 10 mg PO DAILY PRN pantoprazole 40 mg PO DAILY Symbicort 160-4.5 mcg/actuation (budesonide-formoterol) 2 puffs inhalation BID 30 days NS Tobacco use date assessed: 01/13/24 Dental Screening Dental Screen Date: 01/13/24 Did you have a dental visit in the last 12 months?: Yes Did you have a dental problem in the last 6 months where you did not have access to dental care?: No Was dental information given to patient?: Patient has dentist HPI Follow up HPI Details Patient is a 43-year-old gentleman came in today for his regular follow-up appointment Patient is upset today due to her checking process his blood pressure was elevated I rechecked it after 10 minute it is still high at 160 systolic Patient is smoking a lot of cannabis, we talked about it briefly He says that he feels stressed out and is anxious as his want to move back to [place] and he does not He is also depressed and feel anxious Complaining of anal pain, patient have a small hemorrhoid on examination He has been going to bathroom frequently as he was having diarrhea due to IBS and that has flared the pain We talked about cleaning with water rather than using wipes I think that will help him also Sitz bath He is due for colonoscopy as well Complaining of pain right upper quadrant off and on and is requesting ultrasound which I have placed for him Lab order placed to be done as well Patient will return in few days for follow-up REPLACED BY [facility] Medical History Atypical chest pain Tobacco abuse ETOH abuse Other dental procedure status Surgical History Hx of appendectomy Family History Mother Asthma HTN (hypertension) Heavy drinker Father High cholesterol HTN (hypertension) Other Substance use disorder Social History Housing: Apartment Alcohol intake: current Alcohol intake frequency: a few times a month Patient Tobacco Use Status: Former Tobacco user e-Cigarette/Vaping Use: Never Used Current occupational status: employed Cognitive needs: No Hearing needs: No Vision needs: No Questionnaire PHQ-9 Over the last 2 weeks, how often have you been bothered by any of the following problems? 1. Little interest or pleasure in doing things: several days 2. Feeling down, depressed, or hopeless: not at all 3. Trouble falling or staying asleep, or sleeping too much: several days 4. Feeling tired or having little energy: several days 5. Poor appetite or overeating: several days 6. Feeling bad about yourself - or that you are a failure or have let yourself or your family down: not at all 7. Trouble concentrating on things, such as reading the newspaper or watching television: not at all 8. Moving or speaking so slowly that other people could have noticed. Or the opposite - being so fidgety or restless that you have been moving around a lot more than usual: not at all 9. Thoughts that you would be better off or of hurting yourself in some way: not at all Total score: 4 Depression Screening Interpretation: Negative Depression Screening Done: Yes 42053 - PHQ-9 Billing: Yes Source: Developed by Drs. Noe Cortes, Jing Valdovinos, Stanislaw Cruz and colleagues, with an educational fernandez from [employer]. Thrive Questionnaire Date Thrive assessed: 12/24/22 I am a: Patient What is your living situation today?: I have a steady place to live Within the past 12 months, did the food you bought not last and you didn't have the money to get more?: I choose not to answer this question Within the past 12 months, did you worry whether your food would run out before you got money to buy more?: I choose not to answer this question Do you have trouble paying for medicines?: Yes Do you have trouble getting transportation to medical appointments?: Yes Do you have trouble paying your heating and electricity bill?: No Do you have trouble taking care of your child, family member or friend?: I choose not to answer this question Do you have trouble with day-to-day activities such as bathing, preparing meals, shopping, managing finances, etc.?: No Are you interested in more education?: No Please select the resources that you would like help with: None Currently or been in a relationship where the following occur: I choose not to answer THRIVE Score: 1 AUDIT C Alcohol Use Questionnaire (AUDIT-C) 1. How often do you have a drink containing alcohol?: Monthly or less 2. How many drinks containing alcohol do you have on a typical day when you are drinking?: 1 or 2 3. How often do you have six or more drinks on one occasion?: Less than monthly Total Score: 2 JOHANNA-7 AMB Questionnaire JOHANNA-7 Date JOHANNA - 7 assessed: 12/24/22 Feeling nervous, anxious, or on edge: 1 = Several days Not being able to stop or control worryin = Not at all Worrying too much about different things: 0 = Not at all Trouble relaxin = Not at all Being so restless that it is hard to sit still: 0 = Not at all Becoming easily annoyed or irritable: 0 = Not at all Feeling afraid as if something awful might happen: 0 = Not at all Total JOHANNA-7 score (0-4 normal; 5-9 mild; 10-14 moderate; 15-21 severe): 1 Source: Developed by Drs. Noe Cortes, Jing Valdovinos, Stanislaw Cruz and colleagues, with an educational fernandez from [employer]. Review of Systems Const Denies chills and Denies fever(s) ENT Denies epistaxis and Denies nasal discharge Card Denies chest pain Resp Denies chest congestion, Denies cough and Denies hemoptysis GI Denies nausea Skin/Breast Denies rash Neuro Reports no additional complaints Psych Reports no additional complaints Endo Reports no additional complaints Physical exam (Primary Care) Vital Signs: Last Vital Signs Pulse 83 01/13/24 12:22 BP 168/118 H 01/13/24 12:22 Pulse Ox 98 01/13/24 12:22 Oxygen Delivery Method Room Air 01/13/24 12:22 BMI result Body Mass Index 36.2 Tobacco/Smoking Status: Tobacco use Status Tobacco use date assessed 01/13/24 01/13/24 12:25 Patient Tobacco Use Status Former Tobacco user 01/13/24 12:25 e-Cigarette/Vaping Use Never Used 01/13/24 12:25 Depression Screening Interpretation: Negative Thrive Assessment: Date of Thrive Assessment Date Thrive assessed 12/24/22 01/13/24 12:25 Currently or been in a relationship where the following occur: I choose not to answer Const General: cooperative, comfortable and no acute distress Orientation/consciousness: patient oriented x3 HENMT Head: Yes normocephalic Eyes General: appearance normal, both eyes and all related structures Neck Neck: Yes supple Resp Effort & Inspection: normal respiratory effort, no cough and no stridor Cardio Rhythm: regular rhythm Heart sounds: S1 normal heart sound present and S2 normal heart sound present GI Other: Mild right upper quadrant pain without guarding or rebound, rectal exam reveals 1 small nonbleeding hemorrhoid Skin General skin exam: turgor normal Neuro General: patient oriented x3, tone normal and moves all extremities Extrem Right lower extremity: no edema Left lower extremity: no edema Assessment and Plan Assessment & Plan (1) Uncontrolled hypertension: Code(s): I10 - Essential (primary) hypertension (2) Right upper quadrant pain: Code(s): R10.11 - Right upper quadrant pain (3) Anal pain: Code(s): K62.89 - Other specified diseases of anus and rectum (4) External hemorrhoid: Code(s): K64.4 - Residual hemorrhoidal skin tags (5) IBS (irritable bowel syndrome): Code(s): K58.9 - Irritable bowel syndrome without diarrhea Qualifiers: Irritable bowel syndrome type: with diarrhea Qualified Code(s): K58.0 - Irritable bowel syndrome with diarrhea (6) Impaired fasting blood sugar: Code(s): R73.01 - Impaired fasting glucose (7) Obesity due to excess calories: Code(s): E66.09 - Other obesity due to excess calories Qualifiers: Body mass index: BMI 36.0-36.9 Obesity classification: adult class 2 (BMI 35 - 39.9) Serious obesity comorbidity presence: with serious comorbidity Qualified Code(s): E66.01 - Morbid (severe) obesity due to excess calories; Z68.36 - Body mass index [BMI] 36.0-36.9, adult (8) Cannabis use disorder, mild, abuse: Code(s): F12.10 - Cannabis abuse, uncomplicated (9) Colon cancer screening: Code(s): Z12.11 - Encounter for screening for malignant neoplasm of colon Plan Patient is a 43-year-old gentleman came in today for his regular follow-up appointment Patient is upset today due to her checking process his blood pressure was elevated I rechecked it after 10 minute it is still high at 160 systolic I am increasing his atenolol to 50 mg daily Patient is smoking a lot of cannabis, we talked about it briefly He says that he feels stressed out and is anxious as his want to move back to [place] and he does not He is also depressed and feel anxious Complaining of anal pain, patient have a small hemorrhoid on examination He has been going to bathroom frequently as he was having diarrhea due to IBS and that has flared the pain We talked about cleaning with water rather than using wipes I think that will help him also Sitz bath He is due for colonoscopy as well Complaining of pain right upper quadrant off and on and is requesting ultrasound which I have placed for him Lab order placed to be done as well Patient will return in few days for follow-up We will talk about his cannabis use disorder and anxiety Also blood pressure need to be rechecked 45 minutes spent in care of this patient Orders: Orders TSH reflex Free T4 Today E66.01 - Morbid (severe) obesity due to excess calories, I10 - Essential (primary) hypertension, K58.0 - Irritable bowel syndrome with diarrhea, R10.11 - Right upper quadrant pain, R73.01 - Impaired fasting glucose, Z68.36 - Body mass index [BMI] 36.0-36.9, adult Hemoglobin A1c Today E66.01 - Morbid (severe) obesity due to excess calories, I10 - Essential (primary) hypertension, K58.0 - Irritable bowel syndrome with diarrhea, R10.11 - Right upper quadrant pain, R73.01 - Impaired fasting glucose, Z68.36 - Body mass index [BMI] 36.0-36.9, adult US abdomen complete Today R10.11 - Right upper quadrant pain Complete Blood Count Auto Diff Today E66.01 - Morbid (severe) obesity due to excess calories, I10 - Essential (primary) hypertension, K58.0 - Irritable bowel syndrome with diarrhea, R10.11 - Right upper quadrant pain, R73.01 - Impaired fasting glucose, Z68.36 - Body mass index [BMI] 36.0-36.9, adult Comprehensive [place]. Panel Fast Today E66.01 - Morbid (severe) obesity due to excess calories, I10 - Essential (primary) hypertension, K58.0 - Irritable bowel syndrome with diarrhea, R10.11 - Right upper quadrant pain, R73.01 - Impaired fasting glucose, Z68.36 - Body mass index [BMI] 36.0-36.9, adult Lipid Panel Today E66.01 - Morbid (severe) obesity due to excess calories, I10 - Essential (primary) hypertension, K58.0 - Irritable bowel syndrome with diarrhea, R10.11 - Right upper quadrant pain, R73.01 - Impaired fasting glucose, Z68.36 - Body mass index [BMI] 36.0-36.9, adult Referrals Gastroenterology Referral K62.89 - Other specified diseases of anus and rectum, K64.4 - Residual hemorrhoidal skin tags, Z12.11 - Encounter for screening for malignant neoplasm of colon Medications: Changed From atenolol 25 mg PO DAILY 90 days 90 tabs 0RF To atenolol 50 mg PO DAILY 90 days 90 tabs 0RF High blood pressure Coding Level of Care Code Est Pt Level 5 (66818) Diagnoses Uncontrolled hypertension I10 Right upper quadrant pain R10.11 Anal pain K62.89 External hemorrhoid K64.4 Irritable bowel syndrome with diarrhea K58.0 Irritable bowel syndrome type: with diarrhea Impaired fasting blood sugar R73.01 Class 2 severe obesity due to excess calories with serious comorbidity and body mass index (BMI) of 36.0 to 36.9 in adult E66.01; Z68.36 Body mass index: BMI 36.0-36.9 Obesity classification: adult class 2 (BMI 35 - 39.9) Serious obesity comorbidity presence: with serious comorbidity Cannabis use disorder, mild, abuse F12.10 Colon cancer screening Z12.11
== END 2024-01-13 12:51 | disposition home or self-care (01) ==
PROVIDERS: PCP Internal Medicine; Visit Provider Internal Medicine
DX: I10 Essential (primary) hypertension (principal); R10.11 Right upper quadrant pain; E66.01 Morbid (severe) obesity due to excess calories; Z68.36 Body mass index [BMI] 36.0-36.9, adult; K62.89 Other specified diseases of anus and rectum; K64.4 Residual hemorrhoidal skin tags; K58.0 Irritable bowel syndrome with diarrhea; R73.01 Impaired fasting glucose; F12.10 Cannabis abuse, uncomplicated; Z12.11 Encounter for screening for malignant neoplasm of colon

== ENCOUNTER → 2024-01-13 12:14 | Outpatient (BNVA) | payer OTHER, SELFPAY | PROVIDERS: PCP Internal Medicine; Visit Provider Internal Medicine | DX: I10 Essential (primary) hypertension (principal); R10.11 Right upper quadrant pain; K62.89 Other specified diseases of anus and rectum; K64.4 Residual hemorrhoidal skin tags; K58.0 Irritable bowel syndrome with diarrhea; R73.01 Impaired fasting glucose; E66.01 Morbid (severe) obesity due to excess calories; Z68.36 Body mass index [BMI] 36.0-36.9, adult; F12.10 Cannabis abuse, uncomplicated ==

== ENCOUNTER 2024-01-25 13:00 | Outpatient (AMB) | payer OTHER, SELFPAY ==
--- NOTE | 2024-01-25 13:05 | MHC.PC.OV ---
Vital Signs 01/25/24 13:06 Height 5 ft 6 in Weight 226 lb BMI 36.5 BP 120/76 Blood Pressure Location Rt brachial Position Sitting Pulse 70 Pulse Source Pulse Oximeter Pulse Oximetry (%) 96 Oxygen Delivery Method Room Air Intake Visit Reasons: 1 month follow up Allergies hydrochlorothiazide Allergy (Mild, Verified 01/25/24 13:07) Rash Medication List - Last Reconciled 01/25/24 by Duran Garcia MD albuterol sulfate 90 mcg/actuation (ProAir HFA) 1 inh inhalation QID PRN 30 days atenolol 50 mg PO DAILY 90 days cetirizine 10 mg PO DAILY PRN pantoprazole 40 mg PO DAILY Symbicort 160-4.5 mcg/actuation (budesonide-formoterol) 2 puffs inhalation BID 30 days NS Tobacco use date assessed: 01/25/24 Dental Screening Dental Screen Date: 01/13/24 HPI 1 month follow up HPI Details Patient forgot to do labs, reminded again He has ultrasound appointment tomorrow for right upper quadrant discomfort We talked about marijuana use and anxiety Patient is willing to cut down on smoking, and agreed to start medication for anxiety I have sent sertraline 25 mg patient is to start taking that 1 daily Blood pressure is well-controlled today, continue atenolol 50 mg Asthma is stable continue Symbicort And cetirizine for allergy control GERD is stable as well patient is on pantoprazole 40 mg Follow-up 3 months [facility] Medical History Atypical chest pain Tobacco abuse ETOH abuse Other dental procedure status Surgical History Hx of appendectomy Family History Mother Asthma HTN (hypertension) Heavy drinker Father High cholesterol HTN (hypertension) Other Substance use disorder Social History Housing: Apartment Alcohol intake: current Alcohol intake frequency: a few times a month Patient Tobacco Use Status: Former Tobacco user e-Cigarette/Vaping Use: Never Used service: No Current occupational status: employed Cognitive needs: No Hearing needs: No Vision needs: No Questionnaire Thrive Questionnaire Date Thrive assessed: 01/13/24 I am a: Patient What is your living situation today?: I have a steady place to live Within the past 12 months, did the food you bought not last and you didn't have the money to get more?: I choose not to answer this question Within the past 12 months, did you worry whether your food would run out before you got money to buy more?: I choose not to answer this question Do you have trouble paying for medicines?: Yes Do you have trouble getting transportation to medical appointments?: Yes Do you have trouble paying your heating and electricity bill?: No Do you have trouble taking care of your child, family member or friend?: I choose not to answer this question Do you have trouble with day-to-day activities such as bathing, preparing meals, shopping, managing finances, etc.?: No Are you interested in more education?: No Please select the resources that you would like help with: None Currently or been in a relationship where the following occur: I choose not to answer THRIVE Score: 1 JOHANNA-7 AMB Questionnaire JOHANNA-7 Date JOHANNA - 7 assessed: 12/24/22 Source: Developed by Drs. Noe Cortes, Jing Valdovinos, Stanislaw Cruz and colleagues, with an educational fernandez from [employer]. Review of Systems Const Denies chills and Denies fever(s) ENT Denies epistaxis and Denies nasal discharge Card Denies chest pain Resp Denies chest congestion, Denies cough and Denies hemoptysis GI Denies diarrhea and Denies nausea Skin/Breast Denies rash Neuro Reports no additional complaints Psych Reports no additional complaints Endo Reports no additional complaints Physical exam (Primary Care) Vital Signs: Last Vital Signs Pulse 70 01/25/24 13:06 BP 120/76 01/25/24 13:06 Pulse Ox 96 01/25/24 13:06 Oxygen Delivery Method Room Air 01/25/24 13:06 BMI result Body Mass Index 36.5 Tobacco/Smoking Status: Tobacco use Status Tobacco use date assessed 01/25/24 01/25/24 13:09 Patient Tobacco Use Status Former Tobacco user 01/25/24 13:05 e-Cigarette/Vaping Use Never Used 01/25/24 13:05 Thrive Assessment: Date of Thrive Assessment Date Thrive assessed 01/13/24 01/25/24 13:05 Currently or been in a relationship where the following occur: I choose not to answer Const General: cooperative, comfortable and no acute distress Orientation/consciousness: patient oriented x3 HENMT Head: Yes normocephalic Eyes General: appearance normal, both eyes and all related structures Neck Neck: Yes supple Resp Effort & Inspection: normal respiratory effort, no cough and no stridor Cardio Rhythm: regular rhythm Heart sounds: S1 normal heart sound present and S2 normal heart sound present Skin General skin exam: turgor normal Neuro General: patient oriented x3, tone normal and moves all extremities Extrem Right lower extremity: no edema Left lower extremity: no edema Coding Level of Care Code Est Pt Level 4 (95862) Diagnoses Hypertension, essential I10 Moderate persistent asthma without complication J45.40 Asthma complication type: uncomplicated Cannabis use disorder, mild, abuse F12.10 Impaired fasting blood sugar R73.01 Anxiety, generalized F41.1 Assessment & Plan Assessment & Plan (1) Hypertension, essential: Code(s): I10 - Essential (primary) hypertension Category: Medical (2) Asthma, moderate persistent: Code(s): J45.40 - Moderate persistent asthma, uncomplicated Category: Medical Qualifiers: Asthma complication type: uncomplicated Qualified Code(s): J45.40 - Moderate persistent asthma, uncomplicated (3) Cannabis use disorder, mild, abuse: Code(s): F12.10 - Cannabis abuse, uncomplicated Category: Medical (4) Impaired fasting blood sugar: Code(s): R73.01 - Impaired fasting glucose Category: Medical (5) Anxiety, generalized: Code(s): F41.1 - Generalized anxiety disorder Category: Medical Plan Patient forgot to do labs, reminded again He has ultrasound appointment tomorrow for right upper quadrant discomfort We talked about marijuana use and anxiety Patient is willing to cut down on smoking, and agreed to start medication for anxiety I have sent sertraline 25 mg patient is to start taking that 1 daily Blood pressure is well-controlled today, continue atenolol 50 mg Asthma is stable continue Symbicort And cetirizine for allergy control GERD is stable as well patient is on pantoprazole 40 mg Anal pain is better Follow-up 3 months Medications: New sertraline 25 mg PO DAILY 90 tabs 0RF
[2024-01-25 13:06] VITALS: BP 120/76; PULSE 70; O2SAT 96; BMI 36.5
== END 2024-01-25 13:26 | disposition home or self-care (01) ==
PROVIDERS: PCP Internal Medicine; Visit Provider Internal Medicine
DX: I10 Essential (primary) hypertension (principal); J45.40 Moderate persistent asthma, uncomplicated; F12.10 Cannabis abuse, uncomplicated; R73.01 Impaired fasting glucose; F41.1 Generalized anxiety disorder

== ENCOUNTER → 2024-01-25 13:00 | Outpatient (BNVA) | payer OTHER, SELFPAY | PROVIDERS: PCP Internal Medicine; Visit Provider Internal Medicine ==

== ENCOUNTER 2024-01-26 11:08 | Outpatient (REF) | payer OTHER, SELFPAY ==
--- NOTE | ~2024-01-26 | US_ITS ---
EXAMINATION: US ABDOMEN COMPLETE CLINICAL INFORMATION: Right upper quadrant pain. COMPARISON: None available. TECHNIQUE: Real-time imaging of the abdominal viscera. FINDINGS: PANCREAS: Normal. ABDOMINAL AORTA: The proximal, mid, and distal segments are normal in caliber. INFERIOR VENA CAVA: Visualized portions are normal. LIVER: Increased echogenicity of the liver parenchyma, this can be seen in the setting of hepatic steatosis or liver parenchymal disease. The liver contour is normal. No focal hepatic lesion. There is no intrahepatic biliary duct dilatation seen. GALLBLADDER: Borderline enlarged 17.4 cm. The gallbladder is physiologically distended without evidence of stones, sludge, polyps, wall thickening or pericholecystic fluid. COMMON BILE DUCT: Normal in caliber measuring 0.3 cm in diameter. RIGHT KIDNEY: Normal. No hydronephrosis. No renal calculi or focal parenchymal lesions. The kidney measures 11.0 cm in maximum dimension. LEFT KIDNEY: Normal. No hydronephrosis. No renal calculi or focal parenchymal lesions. The kidney measures 11.0 cm in maximum dimension. SPLEEN: Normal. The spleen measures 11.1 cm in maximum dimension. FREE FLUID: None. US/US abdomen complete IMPRESSION: 1. Increased echogenicity of the liver parenchyma, this can be seen in the setting of hepatic steatosis or liver parenchymal disease. 2. Borderline hepatomegaly. 3. No ultrasound evidence of gallbladder disease or gallstones. Electronically signed by: Valentino Jon MD 03/15/2024 10:26 AM RAUL
[2024-01-26 11:52] LABS: MANUAL DIFF FLAG NO
[2024-01-26 12:12] LABS: Basophils Absolute Auto 0.1 X10*3/uL (0.0-0.2); Basophils Percent Auto 1.1 % (0-2); Eosinophils Absolute Auto 0.4 X10*3/uL (0.0-0.4); Eosinophils Percent Auto 4.1 % (0-4); Hematocrit 41.5 % (42.0-52.0); Hemoglobin 13.8 g/dl (14.0-18.0); Imm Gran Abs Auto 0.06 X10*3/uL (0.00-0.03); Imm Gran Pct Auto 0.7 % (0.0-0.4); Lymphocytes Absolute Auto 2.9 X10*3/uL (1.2-4.9); Lymphocytes Percent Auto 33.1 % (20-40); Mean Corpuscular HGB Conc 33.3 g/dl (31.0-36.0); Mean Corpuscular Hemoglobin 27.9 pg (27.0-33.0); Mean Corpuscular Volume 83.8 fL (80.0-98.0); Mean Platelet Volume 9.2 fL (9.4-12.4); Monocytes Absolute Auto 0.7 X10*3/uL (0.1-1.2); Monocytes Percent Auto 7.4 % (2-11); Neutrophils Absolute Auto 4.7 x10*3/uL (2.0-8.3); Neutrophils Percent Auto 53.6 % (45-73); Platelet Count 417 X10*3/uL (160-400); Red Blood Count 4.95 X10*6/uL (4.60-5.80); Red Cell Distribution Width 13.6 % (11.0-16.0); White Blood Count 8.8 X10*3/uL (4.8-10.8)
[2024-01-26 12:16] LABS: Estimated Average Glucose 111 mg/dL; Hemoglobin A1C 128.1786 umol/L; Hemoglobin A1c % 5.5 % (<6.0); Total Hemoglobin (HGBA1C) 3530.4865 umol/L
[2024-01-26 12:40] LABS: Alanine Aminotransferase 31 U/L (0-40); Albumin Level 4.5 g/dL (3.5-5.0); Alkaline Phosphatase 76 U/L (39-117); Anion Gap 12 (12-20); Aspartate Amino Transferase 24 U/L (5-37); Bilirubin Total 0.5 mg/dL (0.0-1.0); Blood Urea Nitrogen 14 mg/dL (9-16); Carbon Dioxide 27 mmol/L (22-29); Chloride 104 mmol/L (96-108); Cholesterol 185 mg/dL (<200); Estimated Glomerular Filt Rate > 60; Glucose Fasting 96 mg/dL (60-99); HDL Cholesterol 40 mg/dL (>40); LDL Cholesterol Calculated 103 mg/dL (<100); Sodium 139 mmol/L (135-145); Total Protein 7.5 g/dL (6.5-8.0); Triglycerides 214 mg/dL (<150)
[2024-01-28 01:39] LABS: LDL Cholesterol Direct 106 mg/dL (<100)
== END 2024-01-26 11:09 | disposition home or self-care (01) ==
LOC: HO.US 11:08
PROVIDERS: PCP Internal Medicine; Visit Provider Internal Medicine
DX: R10.11 Right upper quadrant pain (principal); I10 Essential (primary) hypertension; J45.40 Moderate persistent asthma, uncomplicated; R73.01 Impaired fasting glucose; K21.9 Gastro-esophageal reflux disease without esophagitis; K58.0 Irritable bowel syndrome with diarrhea; E66.01 Morbid (severe) obesity due to excess calories; Z68.36 Body mass index [BMI] 36.0-36.9, adult
CPT/HCPCS: 36415; 76700; 80053; 80061; 83036; 83721; 84443; 85025

== ENCOUNTER 2024-03-20 15:18 | Outpatient (AMB) | payer OTHER, SELFPAY ==
--- NOTE | 2024-03-20 15:20 | A.OFFPC_ITS ---
Vital Signs 03/20/24 15:25 Height 5 ft 6 in Weight 230 lb 6 oz BMI 37.2 BP 120/78 Blood Pressure Location Lt brachial Position Sitting Pulse 75 Pulse Source Pulse Oximeter Pulse Oximetry (%) 97 Oxygen Delivery Method Room Air Intake Visit Reasons: 11 week follow up Allergies hydrochlorothiazide Allergy (Mild, Verified 03/20/24 15:27) Rash Medication List - Last Reconciled 03/20/24 by Duran Garcia MD albuterol sulfate 90 mcg/actuation (ProAir HFA) 1 inh inhalation QID PRN 30 days atenolol 50 mg PO DAILY 90 days cetirizine 10 mg PO DAILY PRN pantoprazole 40 mg PO DAILY sertraline 25 mg PO DAILY Symbicort 160-4.5 mcg/actuation (budesonide-formoterol) 2 puffs inhalation BID 30 days NS Tobacco use date assessed: 03/20/24 Dental Screening Dental Screen Date: 03/20/24 Did you have a dental visit in the last 12 months?: No Did you have a dental problem in the last 6 months where you did not have access to dental care?: Yes Was dental information given to patient?: No HPI 11 week follow up HPI Details Chief Complaint Medication adherence issues and follow-up for multiple chronic conditions. Assessment and Plan 43-year-old male with a history of anxie ty disorder, asthma, and gastroesophageal reflux disease presenting for evaluation of medication adherence and management of chronic conditions. The patient has reduced marijuana usage but struggles with consistent use of prescribed sertraline for anxiety. He also displays non-compliance with asthma inhaler usage and GERD medication. Recent weight gain has been noted, contributing to obesity and fatty liver disease. The patient's current lab work and ultrasound show fatty liver changes but no gallbladder abnormalities. He reported difficulties with medication routines due to work schedule and lifestyle factors, as well as intermittent asthma symptoms not adequately controlled due to infrequent inhaler use. 1. Anxiety Disorder The patient needs to start taking his sertraline 25 mg daily as prescribed to manage anxiety efficiently. Education was provided regarding the importance of daily adherence to this medication for optimal anxiety control and to minimize the need for marijuana. 2. Fatty Liver Disease The patient should focus on weight loss to manage fatty liver disease. No acute issues identified on ultrasound, but the emphasis on lifestyle changes was made clear. Education on the health risks associated with hepatic steatosis and prevention strategies offered. 3. Gastroesophageal Reflux Disease Gerd Patient needs to take pantoprazole consistently every day for effective acid control. Lower the dose to 20 mg due to inconsistent use and to improve adherence. Discussed the impact of diet and lifestyle on GERD symptoms. 4. Asthma Reinforced the need for daily use of inhalers to control asthma symptoms and reduce risks of exacerbations. Discussed associating inhaler use with daily rou tines, such as brushing teeth, for consistent utilization. 5. Obesity The patient's weight needs to be addressed for overall health improvement and to manage fatty liver disease. Advised dietary modifications to reduce fried food intake and increase physical activity. Encouraged weight loss to decrease hepatic steatosis impact. 6. Non-Compliance With Medication Regime n Discussed strategies for improving medication adherence, including setting reminders and placing medications in visible areas. The patient was advised to find a consistent daily schedule to take all prescribed medications. The significance of each medication's role in managing chronic conditions was emphasized. Problem List - Anxiety Disorder - Non-compliance with medication regimen - Obesity - Asthma - Gastroesophageal Reflux Disease (GERD) - Fatty Liver Disease Patient Instructions - Take sertraline 25 mg daily at the [facility] e time each day to manage anxiety. - Use asthma inhaler every morning and a s needed for symptoms to maintain asthma control. - Take pantoprazole 20 mg every day, ulysses ally before a meal, to manage GERD. - Work towards a healthier weight by inc orporating regular exercise and reducing fried food intake. - Explore consistency strategies for rosie ly medication routines, such as reminders or visible placement of medication. - Schedule and attend the colonoscopy ap pointment as advised by gastrointestinal specialist Dr. Key. - Monitor weight, diet, and physical act ivity levels to support liver health and reduce risks associated with fatty liver. - Contact if there are difficulties main taining medication routine or if symptoms worsen. Has appointment coming up with Dr. Key for colon screening [facility] Medical History Atypical chest pain Tobacco abuse ETOH abuse Other dental procedure status Surgical History Hx of appendectomy Family History Mother Asthma HTN (hypertension) Heavy drinker Father High cholesterol HTN (hypertension) Other Substance use disorder Social History Housing: Apartment Alcohol intake: current Alcohol intake frequency: a few times a month Patient Tobacco Use Status: Former Tobacco user e-Cigarette/Vaping Use: Never Used service: No Current occupational status: employed Cognitive needs: No Hearing needs: No Vision needs: No Questionnaire Thrive Questionnaire Date Thrive assessed: 03/20/24 I am a: Patient What is your living situation today?: I have a steady place to live Within the past 12 months, did the food you bought not last and you didn't have the money to get more?: I choose not to answer this question Within the past 12 months, did you worry whether your food would run out before you got money to buy more?: I choose not to answer this question Do you have trouble paying for medicines?: Yes Do you have trouble getting transportation to medical appointments?: Yes Do you have trouble paying your heating and electricity bill?: No Do you have trouble taking care of your child, family member or friend?: I choose not to answer this question Do you have trouble with day-to-day activities such as bathing, preparing meals, shopping, managing finances, etc.?: No Are you currently unemployed and looking for a job?: I choose not to answer this question Are you interested in more education?: No Please select the resources that you would like help with: None Currently or been in a relationship where the following occur: I choose not to answer THRIVE Score: 1 AUDIT C Alcohol Use Questionnaire (AUDIT-C) 1. How often do you have a drink containing alcohol?: Monthly or less 2. How many drinks containing alcohol do you have on a typical day when you are drinking?: 1 or 2 3. How often do you have six or more drinks on one occasion?: Less than monthly Total Score: 2 Score Reviewed/Action Taken: Yes JOHANNA-7 AMB Questionnaire JOHANNA-7 Date JOHANNA - 7 assessed: 03/20/24 Feeling nervous, anxious, or on edge: 0 = Not at all Not being able to stop or control worryin = Not at all Worrying too much about different things: 0 = Not at all Trouble relaxin = Not at all Being so restless that it is hard to sit still: 0 = Not at all Becoming easily annoyed or irritable: 0 = Not at all Feeling afraid as if something awful might happen: 0 = Not at all Total JOHANNA-7 score (0-4 normal; 5-9 mild; 10-14 moderate; 15-21 severe): 0 Source: Developed by Drs. Noe Cortes, Jing Valdovinos, Stanislaw Cruz and colleagues, with an educational fernandez from [employer]. JOHANNA-7 Assessment Billing JOHANNA-7 Assessment Tool: JOHANNA-7 Assessment 82227 Review of Systems Const Denies chills and Denies fever(s) ENT Denies epistaxis and Denies nasal discharge Card Denies chest pain Resp Denies chest congestion, Denies cough and Denies hemoptysis GI Denies diarrhea and Denies nausea Skin/Breast Denies rash Neuro Reports no additional complaints Psych Reports no additional complaints Endo Reports no additional complaints Physical exam (Primary Care) Vital Signs: Last Vital Signs Pulse 75 03/20/24 15:25 BP 120/78 03/20/24 15:25 Pulse Ox 97 03/20/24 15:25 Oxygen Delivery Method Room Air 03/20/24 15:25 BMI result Body Mass Index 37.2 Tobacco/Smoking Status: Tobacco use Status Tobacco use date assessed 03/20/24 03/20/24 15:28 Patient Tobacco Use Status Former Tobacco user 03/20/24 15:22 e-Cigarette/Vaping Use Never Used 03/20/24 15:22 Thrive Assessment: Date of Thrive Assessment Date Thrive assessed 03/20/24 03/20/24 15:28 Currently or been in a relationship where the following occur: I choose not to answer Const General: cooperative, comfortable and no acute distress Orientation/consciousness: patient oriented x3 HENMT Head: Yes normocephalic Eyes General: appearance normal, both eyes and all related structures Neck Neck: Yes supple Resp Effort & Inspection: normal respiratory effort, no cough and no stridor Cardio Rhythm: regular rhythm Heart sounds: S1 normal heart sound present and S2 normal heart sound present Skin General skin exam: turgor normal Neuro General: patient oriented x3, tone normal and moves all extremities Extrem Right lower extremity: no edema Left lower extremity: no edema Coding Level of Care Code Est Pt Level 5 (59112) Diagnoses Hypertension, essential I10 Moderate persistent asthma without complication J45.40 Asthma complication type: uncomplicated Cannabis use disorder, mild, abuse F12.10 Impaired fasting blood sugar R73.01 Anxiety, generalized F41.1 Fatty liver K76.0 Class 2 severe obesity due to excess calories with serious comorbidity and body mass index (BMI) of 36.0 to 36.9 in adult E66.01; Z68.36 Body mass index: BMI 36.0-36.9 Obesity classification: adult class 2 (BMI 35 - 39.9) Serious obesity comorbidity presence: with serious comorbidity Additional Codes JOHANNA-7 Assessment Billing - JOHANNA-7 Assessment Tool: JOHANNA-7 Assessment [id number] ([id number]) Assessment & Plan Assessment & Plan (1) Hypertension, essential: Code(s): I10 - Essential (primary) hypertension Category: Medical (2) Asthma, moderate persistent: Code(s): J45.40 - Moderate persistent asthma, uncomplicated Category: Medical Qualifiers: Asthma complication type: uncomplicated Qualified Code(s): J45.40 - Moderate persistent asthma, uncomplicated (3) Cannabis use disorder, mild, abuse: Code(s): F12.10 - Cannabis abuse, uncomplicated Category: Medical (4) Impaired fasting blood sugar: Code(s): R73.01 - Impaired fasting glucose Category: Medical (5) Anxiety, generalized: Code(s): F41.1 - Generalized anxiety disorder Category: Medical (6) Fatty liver: Code(s): K76.0 - Fatty (change of) liver, not elsewhere classified Category: Medical (7) Obesity due to excess calories: Code(s): E66.09 - Other obesity due to excess calories Category: Medical Qualifiers: Body mass index: BMI 36.0-36.9 Obesity classification: adult class 2 (BMI 35 - 39.9) Serious obesity comorbidity presence: with serious comorbidity Qualified Code(s): E66.01 - Morbid (severe) obesity due to excess calories; Z68.36 - Body mass index [BMI] 36.0-36.9, adult Plan Chief Complaint Medication adherence issues and follow-up for multiple chronic conditions. Assessment and Plan 43-year-old male with a history of anxiety disorder, asthma, and gastroesophageal reflux disease presenting for evaluation of medication adherence and management of chronic conditions. The patient has reduced marijuana usage but struggles with consistent use of prescribed sertraline for anxiety. He also displays non-compliance with asthma inhaler usage and GERD medication. Recent weight gain has been noted, contributing to obesity and fatty liver disease. The patient's current lab work and ultrasound show fatty liver changes but no gallbladder abnormalities. He reported difficulties with medication routines due to work schedule and lifestyle factors, as well as intermittent asthma symptoms not adequately controlled due to infrequent inhaler use. 1. Anxiety Disorder The patient needs to start taking his sertraline 25 mg daily as prescribed to manage anxiety efficiently. Education was provided regarding the importance of daily adherence to this medication for optimal anxiety control and to minimize the need for marijuana. 2. Fatty Liver Disease The patient should focus on weight loss to manage fatty liver disease. No acute issues identified on ultrasound, but the emphasis on lifestyle changes was made clear. Education on the health risks associated with hepatic steatosis and prevention strategies offered. 3. Gastroesophageal Reflux Disease Gerd Patient needs to take pantoprazole consistently every day for effective acid control. Lower the dose to 20 mg due to inconsistent use and to improve adherence. Discussed the impact of diet and lifestyle on GERD symptoms. 4. Asthma Reinforced the need for daily use of inhalers to control asthma symptoms and reduce risks of exacerbations. Discussed associating inhaler use with daily routines, such as brushing teeth, for consistent utilization. 5. Obesity The patient's weight needs to be addressed for overall health improvement and to manage fatty liver disease. Advised dietary modifications to reduce fried food intake and increase physical activity. Encouraged weight loss to decrease hepatic steatosis impact. 6. Non-Compliance With Medication Regimen Discussed strategies for improving medication adherence, including setting reminders and placing medications in visible areas. The patient was advised to find a consistent daily schedule to take all prescribed medications. The signi ficance of each medication's role in managing chronic conditions was emphasized. Problem List - Anxiety Disorder - Non-compliance with medication regimen - Obesity - Asthma - Gastroesophageal Reflux Disease (GERD) - Fatty Liver Disease Patient Instructions - Take sertraline 25 mg daily at the same time each day to manage anxiety. - Use asthma inhaler every morning and as needed for symptoms to maintain asthma control. - Take pantoprazole 20 mg every day, ideally before a meal, to manage GERD. - Work towards a healthier weight by incorporating regular exercise and reducing fried food intake. - Explore consistency strategies for daily medication routines, such as reminders or visible placement of medication. - Schedule and attend the colonoscopy appointment as advised by gastrointestinal specialist Dr. Key. - Monitor weight, diet, and physical activity levels to support liver health and reduce risks associated with fatty liver. - Contact if there are difficulties maintaining medication routine or if symptoms worsen. Has appointment coming up with Dr. Key for colon screening 45 minute spent in care of this patient explaining it is important to take medications as prescribed to feel better Medications: Changed From pantoprazole 40 mg PO DAILY 90 tabs 0RF To pantoprazole 20 mg PO DAILY 90 tabs 0RF
[2024-03-20 15:25] VITALS: BP 120/78; PULSE 75; O2SAT 97; BMI 37.2
== END 2024-03-20 15:48 | disposition home or self-care (01) ==
PROVIDERS: PCP Internal Medicine; Visit Provider Internal Medicine
DX: I10 Essential (primary) hypertension (principal); J45.40 Moderate persistent asthma, uncomplicated; E66.01 Morbid (severe) obesity due to excess calories; Z68.37 Body mass index [BMI] 37.0-37.9, adult; F12.10 Cannabis abuse, uncomplicated; R73.01 Impaired fasting glucose; F41.1 Generalized anxiety disorder; K76.0 Fatty (change of) liver, not elsewhere classified

== ENCOUNTER → 2024-03-20 15:18 | Outpatient (BNVA) | payer OTHER, SELFPAY | PROVIDERS: PCP Internal Medicine; Visit Provider Internal Medicine | DX: I10 Essential (primary) hypertension (principal); J45.40 Moderate persistent asthma, uncomplicated; F12.10 Cannabis abuse, uncomplicated; R73.01 Impaired fasting glucose; F41.1 Generalized anxiety disorder; K76.0 Fatty (change of) liver, not elsewhere classified; E66.01 Morbid (severe) obesity due to excess calories; Z68.37 Body mass index [BMI] 37.0-37.9, adult; K21.9 Gastro-esophageal reflux disease without esophagitis; Z91.148 Patient's other noncompliance with medication regimen for other reason | CPT/HCPCS: 96127 ==

== ENCOUNTER → 2024-06-19 13:31 | Outpatient (BNVA) | payer SELFPAY | PROVIDERS: PCP Internal Medicine; Visit Provider Internal Medicine ==

== ENCOUNTER 2024-10-05 10:55 | Outpatient (REF) | payer OTHER, SELFPAY ==
[2024-10-05 13:50] LABS: MANUAL DIFF FLAG NO
[2024-10-05 14:00] LABS: Basophils Absolute Auto 0.1 X10*3/uL (0.0-0.2); Basophils Percent Auto 1.1 % (0-2); Eosinophils Absolute Auto 0.3 X10*3/uL (0.0-0.4); Eosinophils Percent Auto 3.6 % (0-4); Hematocrit 40.4 % (42.0-52.0); Hemoglobin 13.8 g/dl (14.0-18.0); Imm Gran Abs Auto 0.08 X10*3/uL (0.00-0.03); Imm Gran Pct Auto 0.9 % (0.0-0.4); Lymphocytes Absolute Auto 2.7 X10*3/uL (1.2-4.9); Lymphocytes Percent Auto 31.5 % (20-40); Mean Corpuscular HGB Conc 34.2 g/dl (31.0-36.0); Mean Corpuscular Hemoglobin 28.2 pg (27.0-33.0); Mean Corpuscular Volume 82.4 fL (80.0-98.0); Mean Platelet Volume 9.8 fL (9.4-12.4); Monocytes Absolute Auto 0.6 X10*3/uL (0.1-1.2); Monocytes Percent Auto 7.3 % (2-11); Neutrophils Absolute Auto 4.8 x10*3/uL (2.0-8.3); Neutrophils Percent Auto 55.6 % (45-73); Platelet Count 387 X10*3/uL (160-400); Red Cell Distribution Width 13.3 % (11.0-16.0); White Blood Count 8.6 X10*3/uL (4.8-10.8)
[2024-10-05 14:38] LABS: Alanine Aminotransferase 29 U/L (0-40); Albumin Level 4.5 g/dL (3.5-5.0); Alkaline Phosphatase 94 U/L (39-117); Anion Gap 12 (12-20); Aspartate Amino Transferase 24 U/L (5-37); Bilirubin Total 0.2 mg/dL (0.0-1.0); Blood Urea Nitrogen 12 mg/dL (9-16); Calcium 9.5 mg/dL (8.4-10.2); Carbon Dioxide 24 mmol/L (22-29); Chloride 105 mmol/L (96-108); Estimated Glomerular Filt Rate > 60; Glucose Random 97 mg/dL (60-115); Potassium 3.7 mmol/L (3.3-5.1); Sodium 137 mmol/L (135-145); Total Protein 7.5 g/dL (6.5-8.0)
== END 2024-10-05 10:56 | disposition home or self-care (01) ==
LOC: HO.HMGCLDS 10:55
PROVIDERS: PCP Internal Medicine; Visit Provider Internal Medicine
DX: I10 Essential (primary) hypertension (principal); J45.40 Moderate persistent asthma, uncomplicated; R73.01 Impaired fasting glucose; E66.01 Morbid (severe) obesity due to excess calories; Z68.36 Body mass index [BMI] 36.0-36.9, adult; K21.9 Gastro-esophageal reflux disease without esophagitis; K76.0 Fatty (change of) liver, not elsewhere classified; K64.9 Unspecified hemorrhoids; K58.9 Irritable bowel syndrome, unspecified; Z79.899 Other long term (current) drug therapy; Z13.31 Encounter for screening for depression
CPT/HCPCS: 36415; 80053; 85025; 96127; 99212

== ENCOUNTER 2024-10-05 10:55 | Outpatient (AMB) | payer OTHER, SELFPAY ==
[2024-10-05 10:56] VITALS: BP 138/88; PULSE 76; RESP 15; TEMP 36.3; O2SAT 98; BMI 36.2
--- NOTE | 2024-10-05 10:56 | MHC.PC.OV ---
Vital Signs 10/05/24 10:56 Height 5 ft 6 in Weight 224 lb BMI 36.2 BP 138/88 Blood Pressure Location Rt brachial Position Sitting Respiration 15 Pulse 76 Pulse Source Pulse Oximeter Temp 97.4 F Temp Source Oral Pulse Oximetry (%) 98 Oxygen Delivery Method Room Air Intake Visit Reasons: 3 months f/up miss appt from june Allergies hydrochlorothiazide Allergy (Mild, Verified 10/05/24 10:57) Rash Medication List - Last Reconciled 10/05/24 by Duran Garcia MD albuterol sulfate 90 mcg/actuation (ProAir HFA) 1 inh inhalation QID PRN 30 days atenolol 50 mg PO DAILY 90 days cetirizine 10 mg PO DAILY PRN pantoprazole 20 mg PO DAILY sertraline 25 mg PO DAILY Symbicort 160-4.5 mcg/actuation (budesonide-formoterol) 2 puffs inhalation BID 30 days NS Tobacco use date assessed: 10/05/24 Dental Screening Dental Screen Date: 10/05/24 Did you have a dental visit in the last 12 months?: Yes Did you have a dental problem in the last 6 months where you did not have access to dental care?: No Was dental information given to patient?: Patient has dentist HPI 3 months f/up miss appt from june HPI Details History - The patient is a 44-year-old male presenting with a regular follow-up to manage chronic conditions and medication review. - Anxiety: The patient has a history of anxiety, which is currently managed with sertraline. - Fatty liver: The patient has a history of fatty liver, which remains an active problem. - Hypertension: The patient is on atenolol 50 mg for hypertension management. - Hemorrhoids: The patient reports having hemorrhoids, which are stable at present. - Gastroesophageal reflux disease: The patient experiences acid reflux and is taking pantoprazole for management. - Irritable bowel syndrome: The patient has a diagnosis of irritable bowel syndrome. - Impaired fasting glucose: The patient has impaired fasting glucose levels. - Lateral epicondylitis, right side: The patient reports right-sided tennis elbow, which is currently not problematic. - Asthma: The patient has asthma and uses Symbicort as needed. - Obesity: The patient has a BMI of 36.2, indicating obesity. - Medication adherence: The patient is taking atenolol, cetirizine, propranolol, sertraline, and Symbicort as prescribed. Medications - Atenolol 50 mg for hypertension - Cetirizine for allergies - Propranolol - Sertraline for anxiety - Symbicort for asthma, used as needed - Pantoprazole for gastroesophageal reflux disease Problem List - Anxiety - Fatty liver - Hypertension - Hemorrhoids - Gastroesophageal reflux disease - Irritable bowel syndrome - Impaired fasting glucose - Lateral epicondylitis, right side - Asthma - Obesity [place] [facility] The patient plans to relocate to [place] and will be referred to a family doctor there by his partner's family. Patient Instructions - Continue taking all prescribed medications as directed. - Complete the ordered blood tests before relocating. - transmission supervisor printed medical records and lab results before moving. Review of Systems General: No fever no chills neurological: No headaches no dizziness ear nose throat: No sore throat no hearing difficulty no ear pain cardiovascular: No syncope, no chest pain, no palpitations gastrointestinal: No nausea vomiting or diarrhea endocrine: No polyuria polydipsia no heat intolerance genitourinary: No dysuria skin: No new complaints Physical Exam general: No acute distress HEENT: No acute findings neck: Supple respiratory system: Lungs are clear able to talk in full sentences, no audible wheeze, no stridor cardiovascular: S1-S2 RRR, heart is fine gastrointestinal: No pain, no nausea, no vomiting extremities: No new findings, no swelling 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: Alert awake oriented x3 motor sensory intact skin: Normal turgor PFSH Medical History Atypical chest pain Tobacco abuse ETOH abuse Other dental procedure status Surgical History Hx of appendectomy Family History Mother Asthma HTN (hypertension) Heavy drinker Father High cholesterol HTN (hypertension) Other Substance use disorder Social History Housing: Apartment Alcohol intake: current Alcohol intake frequency: a few times a month Patient Tobacco Use Status: Former Tobacco user Tobacco use type: Smokeless Tobacco e-Cigarette/Vaping Use: Never Used service: No Current occupational status: employed Cognitive needs: No Hearing needs: No Vision needs: No Questionnaire PHQ-9 Over the last 2 weeks, how often have you been bothered by any of the following problems? 1. Little interest or pleasure in doing things: not at all 2. Feeling down, depressed, or hopeless: not at all 3. Trouble falling or staying asleep, or sleeping too much: several days 4. Feeling tired or having little energy: several days 5. Poor appetite or overeating: not at all 6. Feeling bad about yourself - or that you are a failure or have let yourself or your family down: not at all 7. Trouble concentrating on things, such as reading the newspaper or watching television: not at all 8. Moving or speaking so slowly that other people could have noticed. Or the opposite - being so fidgety or restless that you have been moving around a lot more than usual: not at all 9. Thoughts that you would be better off or of hurting yourself in some way: not at all Total score: 2 Depression Screening Interpretation: Negative Depression Screening Done: Yes 92590 - PHQ-9 Billing: Yes Source: Developed by Drs. Noe Cortes, Jing Valdovinos, Stanislaw Cruz and colleagues, with an educational fernandez from [employer]. Thrive Questionnaire Date Thrive assessed: 06/19/24 I am a: Patient What is your living situation today?: I choose not to answer this question Within the past 12 months, did the food you bought not last and you didn't have the money to get more?: I choose not to answer this question Within the past 12 months, did you worry whether your food would run out before you got money to buy more?: I choose not to answer this question Do you have trouble paying for medicines?: I choose not to answer this question Do you have trouble getting transportation to medical appointments?: I choose not to answer this question Do you have trouble paying your heating and electricity bill?: I choose not to answer this question Do you have trouble taking care of your child, family member or friend?: I choose not to answer this question Do you have trouble with day-to-day activities such as bathing, preparing meals, shopping, managing finances, etc.?: I choose not to answer this question Are you currently unemployed and looking for a job?: I choose not to answer this question Are you interested in more education?: I choose not to answer this question Please select the resources that you would like help with: None Currently or been in a relationship where the following occur: I choose not to answer THRIVE Score: 0 JOHANNA-7 AMB Questionnaire JOHANNA-7 Date JOHANNA - 7 assessed: 03/20/24 Source: Developed by Drs. Noe Cortes, Jing Valdovinos, Stanislaw Cruz and colleagues, with an educational fernandez from [employer]. Physical exam (Primary Care) Vital Signs: Last Vital Signs Temp 97.4 F 10/05/24 10:56 Pulse 76 10/05/24 10:56 Resp 15 10/05/24 10:56 BP 138/88 10/05/24 10:56 Pulse Ox 98 10/05/24 10:56 Oxygen Delivery Method Room Air 10/05/24 10:56 BMI result Body Mass Index 36.2 Tobacco/Smoking Status: Tobacco use Status Tobacco use date assessed 10/05/24 10/05/24 10:58 Patient Tobacco Use Status Former Tobacco user 10/05/24 10:58 Tobacco use type Smokeless Tobacco 10/05/24 11:03 e-Cigarette/Vaping Use Never Used 10/05/24 10:58 PHQ-9: PHQ-9 Score PHQ-9: Total score 2 10/05/24 10:58 Depression Screening Interpretation: Negative Thrive Assessment: Date of Thrive Assessment Date Thrive assessed 06/19/24 10/05/24 10:58 Currently or been in a relationship where the following occur: I choose not to answer Coding Level of Care Code Est Pt Level 4 (01948) Diagnoses Hypertension, essential I10 Moderate persistent asthma without complication J45.40 Asthma complication type: uncomplicated Impaired fasting blood sugar R73.01 Class 2 severe obesity due to excess calories with serious comorbidity and body mass index (BMI) of 36.0 to 36.9 in adult E66.01; Z68.36 Body mass index: BMI 36.0-36.9 Obesity classification: adult class 2 (BMI 35 - 39.9) Serious obesity comorbidity presence: with serious comorbidity Gastroesophageal reflux disease without esophagitis K21.9 Esophagitis presence: without esophagitis Additional Codes PHQ-9 - 55342 - PHQ-9 Billing: Yes ([id number]) Assessment & Plan Assessment & Plan (1) Hypertension, essential: Code(s): I10 - Essential (primary) hypertension Category: Medical (2) Asthma, moderate persistent: Code(s): J45.40 - Moderate persistent asthma, uncomplicated Category: Medical Qualifiers: Asthma complication type: uncomplicated Qualified Code(s): J45.40 - Moderate persistent asthma, uncomplicated (3) Impaired fasting blood sugar: Code(s): R73.01 - Impaired fasting glucose Category: Medical (4) Obesity due to excess calories: Code(s): E66.09 - Other obesity due to excess calories Category: Medical Qualifiers: Body mass index: BMI 36.0-36.9 Obesity classification: adult class 2 (BMI 35 - 39.9) Serious obesity comorbidity presence: with serious comorbidity Qualified Code(s): E66.01 - Morbid (severe) obesity due to excess calories; Z68.36 - Body mass index [BMI] 36.0-36.9, adult (5) Acid reflux: Code(s): K21.9 - Gastro-esophageal reflux disease without esophagitis Category: Medical Qualifiers: Esophagitis presence: without esophagitis Qualified Code(s): K21.9 - Gastro-esophageal reflux disease without esophagitis Plan History - The patient is a 44-year-old male presenting with a regular follow-up to manage chronic conditions and medication review. - Anxiety: The patient has a history of anxiety, which is currently managed with sertraline. - Fatty liver: The patient has a history of fatty liver, which remains an active problem. - Hypertension: The patient is on atenolol 50 mg for hypertension management. - Hemorrhoids: The patient reports having hemorrhoids, which are stable at present. - Gastroesophageal reflux disease: The patient experiences acid reflux and is taking pantoprazole for management. - Irritable bowel syndrome: The patient has a diagnosis of irritable bowel syndrome. - Impaired fasting glucose: The patient has impaired fasting glucose levels. - Lateral epicondylitis, right side: The patient reports right-sided tennis elbow, which is currently not problematic. - Asthma: The patient has asthma and uses Symbicort as needed. - Obesity: The patient has a BMI of 36.2, indicating obesity. - Medication adherence: The patient is taking atenolol, cetirizine, propranolol, sertraline, and Symbicort as prescribed. Medications - Atenolol 50 mg for hypertension - Cetirizine for allergies - Propranolol - Sertraline for anxiety - Symbicort for asthma, used as needed - Pantoprazole for gastroesophageal reflux disease Problem List - Anxiety - Fatty liver - Hypertension - Hemorrhoids - Gastroesophageal reflux disease - Irritable bowel syndrome - Impaired fasting glucose - Lateral epicondylitis, right side - Asthma - Obesity [place] [facility] The patient plans to relocate to [place] and will be referred to a family doctor there by his partner's family. Patient Instructions - Continue taking all prescribed medications as directed. - Complete the ordered blood tests before relocating. - transmission supervisor printed medical records and lab results before moving. Orders: Orders Comprehensive Met. Panel Today E66.01 - Morbid (severe) obesity due to excess calories, I10 - Essential (primary) hypertension, J45.40 - Moderate persistent asthma, uncomplicated, K21.9 - Gastro-esophageal reflux disease without esophagitis, R73.01 - Impaired fasting glucose, Z68.36 - Body mass index [BMI] 36.0-36.9, adult Complete Blood Count Auto Diff Today E66.01 - Morbid (severe) obesity due to excess calories, I10 - Essential (primary) hypertension, J45.40 - Moderate persistent asthma, uncomplicated, K21.9 - Gastro-esophageal reflux disease without esophagitis, R73.01 - Impaired fasting glucose, Z68.36 - Body mass index [BMI] 36.0-36.9, adult Medications: Refilled sertraline 25 mg PO DAILY 90 tabs 0RF pantoprazole 20 mg PO DAILY 90 tabs 0RF Symbicort 160-4.5 mcg/actuation (budesonide-formoterol) 2 puffs inhalation BID 10.2 grams 3RF 30 days NS J45.909 - Unspecified asthma, uncomplicated atenolol 50 mg PO DAILY 90 tabs 0RF High blood pressure 90 days albuterol sulfate 90 mcg/actuation (ProAir HFA) 1 inh inhalation QID PRN 18 grams 3RF shortness of breath or wheezing 30 days J45.20 - Mild intermittent asthma, uncomplicated
--- OUTSIDE RECORDS SUMMARY | 2024-10-05 11:21 | XMS_ITS | Patient Health Record ---
Author Organization [facility] Address [address] [place] [id number] Care Team Providers Care Nursing Informatics Specialist Name Role Phone Jose NEAL, [facility] Primary [facility] Provider Noe Bauman Unavailable [phone] Allergies No Known Allergies Reason For Referral No Information Medications Medication SIG (Take, Route, Frequency, Duration) Notes Start Date End Date Status Sertraline HCl 25 MG TAKE 1 TABLET BY MO [facility] EVERY DAY Oral for 90 Active Pantoprazole Sodium 20 MG TAKE 1 TABLET BY MOUTH DAILY Oral for 90 Active Atenolol 50 MG Oral for 90 Act lela Tums 500 MG 1 tablet Orally Once a day for 30 day(s) Active Social History Tobacco Use: Social History Observation Description Date Details (start date - stop date) Never Smoker NA - NA Tobacco Use/Smoking Question Answer Notes Patient is a nonsmoker Alcohol Screen Question Answer Notes Did you have a drink contain ing alcohol in the past year? Yes How often did you have a dri nk containing alcohol in the past year? Monthly or less (1 point) How many drinks did you have on a typical day when you were drinking in the past year? 1 or 2 drinks (0 point) How often did you have 6 or more drinks on one occasion in the past year? Never (0 point) Points 1 Interpretation Negative Section Notes: Smokes marijuana daily; no a lcohol except very occasionally--heavy when he was younger Problems Problem Type SNOMED Code ICD Code Onset Dates Problem Status W/U Status Risk Notes Problem Colon cancer screening (721560075) Colon cancer screening (Z12.11) Active confirmed Problem Gastroesophageal reflux disease (disorder) (588742905) Chronic GERD (K21.9) Active confirmed Vital Signs Blood pressure diastolic 00 mm Hg 05/17/2024 Height 5 ft 6 in in 05/17/2024 Blood pressure systolic 00 mm Hg 05/17/2024 Weight 224 lbs 05/17/2024 BMI 36.15 kg/m2 05/17/2024 Encounters Encounter Location Date Provider Diagnosis [facility] [address] [place] [address] 05/17/2024 Noe Shahid Chronic GERD K21.9 and Colon cancer screening Z12.11 [facility] [address] [place] [address] 09/20/2024 Noe Key [facility] [address] [place] [address] 07/26/2024 Noe [place] [facility] [address] [place] [address] 08/28/2024 Noe Key Assessments Encounter Date Diagnosis (ICD Code) Assessment Notes Treatment Notes Treatment Clinical Notes Section Notes 05/17/2024 Colon cancer screening (ICD-10 - Z12.11) Overall, Obed appears well. He is not having any particularly worrisome GI complaints at the present time. We did review that his intermittent loose stools could very well be from things such as caffeine and he should try to minimize the use of that. I did recommend a colonoscopy primarily for screening purposes given his age and otherwise good clinical appearance. We did review the rationale for this oin regard to colon cancer prevention. I also recommended an upper endoscopy on the same day given his history of reflux and long-standing PPI use, as well as his previous heavy alcohol use. We did review that it would be important to exclude any significant esophagitis and/or Prescott's esophagus. Full consent was obtained from him for both procedures, including risks of bleeding and perforation. The procedures will be done with monitored anesthesia care. I did advise him to continue his PPI in the meantime in regard to his reflux, to continue to remain abstinent from alcohol, and use dietary discretion so as not to cause GI upset. Obed was comfortable with this plan. Thank you again for allowing me to participate in Obed's care. I shall continue to keep you advised of his progress. 05/17/2024 Chronic GERD (ICD-10 - K21.9) Overall, Obed appears well. He is not having any particularly worrisome GI complaints at the present time. We did review that his intermittent loose stools could very well be from things such as caffeine and he should try to minimize the use of that. I did recommend a colonoscopy primarily for screening purposes given his age and otherwise good clinical appearance. We did review the rationale for this oin regard to colon cancer prevention. I also recommended an upper endoscopy on the same day given his history of reflux and long-standing PPI use, as well as his previous heavy alcohol use. We did review that it would be important to exclude any significant esophagitis and/or Prescott's esophagus. Full consent was obtained from him for both procedures, including risks of bleeding and perforation. The procedures will be done with monitored anesthesia care. I did advise him to continue his PPI in the meantime in regard to his reflux, to continue to remain abstinent from alcohol, and use dietary discretion so as not to cause GI upset. Obed was comfortable with this plan. Thank you again for allowing me to participate in Obed's care. I shall continue to keep you advised of his progress. Plan Of Treatment Future Test Test Name Order Date UPPER GI ENDOSCOPY 05/17/2024 COLONOSCOPY 05/17/2024 Insurance Providers Payer Name Payer Address Payer Phone Subscriber Number Group Number Insured Name Patient Relationship to Insured Coverage Start Date Coverage End Date [facility] [address] [place] [phone] [id number] [place] Self - patient is the insured Medical (General) History Medical History History ICD Code Hypertension Asthma mild---inhaler prn Anxiety GERD Denies VA,DM,CVA,renal disease Fatty liver seen on a 2023 u ltrasound but there was no evidence of any significant liver disease and no splenomegaly or ascites; a liver profile was completely normal in January of 2024 as well Surgical History Surgery Date(Month/Year) Appendectomy
== END 2024-10-05 12:07 | disposition home or self-care (01) ==
LOC: HO.HMCC 10:56
PROVIDERS: PCP Internal Medicine; Visit Provider Internal Medicine
DX: I10 Essential (primary) hypertension (principal); J45.40 Moderate persistent asthma, uncomplicated; R73.01 Impaired fasting glucose; E66.01 Morbid (severe) obesity due to excess calories; Z68.36 Body mass index [BMI] 36.0-36.9, adult; K21.9 Gastro-esophageal reflux disease without esophagitis